=== PATIENT | female | born 1950 | race Caucasian/White ===

== ENCOUNTER 2017-06-12 20:38 | Emergency (ER) | payer MEDICARE, OTHER ==
[~2017-06-12] VITALS: Ht 162.6 cm; Wt 74.5 kg
[2017-06-12] MEDS ORDERED: VITAD1000 PO (20:52)
[2017-06-12] MEDS ORDERED: DONE5TAB5 PO (20:52)
[2017-06-12] MEDS ORDERED: ASPI81 PO (20:52)
[2017-06-12] MEDS ORDERED: LEVO75 PO (20:52)
[2017-06-12] MEDS ORDERED: MELA3TAB66 PO (20:52)
[2017-06-12] MEDS ORDERED: METO25 PO (20:52)
[2017-06-12] MEDS ORDERED: LISI-661 PO (20:52)
[2017-06-12] MEDS ORDERED: MOM30 PO (20:52)
[2017-06-12] MEDS ORDERED: FLUO-191 PO (20:52)
[2017-06-12] MEDS ORDERED: ATOR10TA84 PO (20:52)
[2017-06-12] MEDS ORDERED: BISA5TAB12 PO (20:52)
[2017-06-12] MEDS ORDERED: ACET-784 PO (20:52)
[2017-06-12] MEDS ORDERED: MIRT15 PO (20:52)
[2017-06-12] MEDS ORDERED: OLAN10TA3 PO (20:52)
[2017-06-12 22:32] LABS: BASOPHILS # (AUTO) 0.07 K/uL (0.00-0.20); BASOPHILS % (AUTO) 0.7 % (0.0-2.0); EOSINOPHILS # (AUTO) 0.25 K/uL (0.00-0.70); EOSINOPHILS % (AUTO) 2.36 % (1.0-6.0); HEMOGLOBIN 12.2 g/dL (12.0-16.0); LYMPHOCYTES # (AUTO) 2.4 K/uL (1.0-4.8); MEAN CORPUSCULAR HEMOGLOBIN 30.9 pg (26.0-34.0); MEAN CORPUSCULAR VOLUME 94 fL (80-100); MONOCYTES # (AUTO) 0.7 K/uL (0.1-1.0); MONOCYTES % (AUTO) 6.4 % (2.0-9.0); NEUTROPHILS # (AUTO) 7.1 K/uL (1.8-7.7); NEUTROPHILS % (AUTO) 67.6 % (40.0-70.0); PLATELET COUNT (AUTO) 289 K/uL (150-450); RED BLOOD CELL COUNT(AUTO) 3.95 MIL/uL (4.00-5.20)
[2017-06-12 22:46] LABS: ANION GAP 9 mmol/L (8-16); CALCIUM, TOTAL 9.6 mg/dL (8.8-10.5); CARBON DIOXIDE 29 mmol/L (22-29); CHLORIDE 102 mmol/L (98-107); CREATININE 1.21 mg/dL (0.60-1.30); GLOMERULAR FILTR. RATE CALC 44 mL/min (>60); GLUCOSE,RANDOM 106 mg/dL (70-110); POTASSIUM 4.6 mmol/L (3.5-5.1); SODIUM SERUM 140 mmol/L (136-145); UREA NITROGEN, BLOOD 24 mg/dL (7-18)
[2017-06-12 22:52] LABS: ALANINE AMINOTRANSFERASE 16 U/L (12-78); ALBUMIN 3.3 g/dL (3.4-5.0); ALKALINE PHOSPHATASE 62 U/L (46-116); ASPARTATE AMINOTRANSFERASE 22 U/L (15-37); BILIRUBIN,TOTAL 0.2 mg/dL (0.1-1.0); TOTAL PROTEIN, SERUM 7.3 g/dL (6.4-8.2)
[2017-06-12 23:37] LABS: AMPHET/METH SCREEN,URINE NEGATIVE (NEGATIVE); BARBITURATE SCREEN, URINE NEGATIVE (NEGATIVE); BENZODIAZEPINES SCREEN,URINE NEGATIVE (NEGATIVE); CANNABINOID SCREEN,URINE NEGATIVE (NEGATIVE); COCAINE SCREEN,URINE NEGATIVE (NEGATIVE); METHADONE SCREEN, URINE NEGATIVE (NEGATIVE); OPIATE SCREEN,URINE NEGATIVE (NEGATIVE)
[2017-06-12 23:39] LABS: PHENCYCLIDINE SCREEN,URINE NEGATIVE (NEGATIVE)
[2017-06-13 01:36] VITALS: BP 176/89
== END 2017-06-13 02:24 | disposition home or self-care (01) ==
LOC: EMS 20:40
DX: F25.9 Schizoaffective disorder, unspecified (principal); I10 Essential (primary) hypertension
CPT/HCPCS: 36415; 80053; 80307; 85025; 99284; G0480

== ENCOUNTER 2017-12-31 11:43 | Emergency (ER) | payer MEDICARE, OTHER ==
[~2017-12-31] VITALS: Ht 152.4 cm; Wt 90.0 kg
[~2017-12-31 11:43] MED LIST: ACET-784 PO; ASPI81 PO; ATOR10TA84 PO; BISA5TAB12 PO; DONE5TAB5 PO; FLUO-191 PO; LEVO75 PO; LISI-661 PO; MELA3TAB66 PO; METO25 PO; MIRT15 PO; MOM30 PO; OLAN10TA3 PO; VITAD1000 PO
[2017-12-31 14:20] LABS: APPEARANCE,URINE CLEAR (CLEAR); BILIRUBIN,URINE NEGATIVE (NEGATIVE); GLUCOSE, URINE (UA) NEGATIVE (NEGATIVE); KETONES,URINE NEGATIVE (NEGATIVE); LEUKOCYTE ESTERASE ,URINE NEGATIVE (NEGATIVE); NITRATE,URINE NEGATIVE (NEGATIVE); OCCULT BLOOD,URINE SMALL (NEGATIVE); PROTEIN,URINE TRACE (NEGATIVE); UROBILINOGEN,URINE 0.2 mg/dL (<=1.0)
[2017-12-31 14:26] LABS: BASOPHILS % (AUTO) 1.1 % (0.0-2.0); EOSINOPHILS % (AUTO) 1.2 % (1.0-6.0); HEMATOCRIT 30.9 % (36-46); HEMOGLOBIN 10.5 g/dL (12.0-16.0); LYMPHOCYTES # (AUTO) 1.4 K/uL (1.0-4.8); LYMPHOCYTES % (AUTO) 17.9 % (22.0-44.0); MEAN CORPUSCULAR HEMOGLOBIN 31.7 pg (26.0-34.0); MEAN CORPUSCULAR HGB CONC 34.1 G/dL (31.0-37.0); MEAN CORPUSCULAR VOLUME 93 fL (80-100); MONOCYTES # (AUTO) 0.6 K/uL (0.1-1.0); MONOCYTES % (AUTO) 7.5 % (2.0-9.0); NEUTROPHILS # (AUTO) 5.7 K/uL (1.8-7.7); NEUTROPHILS % (AUTO) 72.3 % (40.0-70.0); PLATELET COUNT (AUTO) 330 K/uL (150-450); RED BLOOD CELL COUNT(AUTO) 3.32 MIL/uL (4.00-5.20); RED CELL DISTRIBUTION WIDTH 15.4 % (11.5-14.5)
[2017-12-31 14:33] LABS: BACTERIA,URINE Rare /HPF (None Seen); WBC,URINE 0-2 /HPF (0-5)
[2017-12-31 14:34] LABS: CALCIUM, TOTAL 8.7 mg/dL (8.8-10.5); CREATININE 1.07 mg/dL (0.60-1.30); POTASSIUM 3.6 mmol/L (3.5-5.1)
[2017-12-31 14:35] LABS: SQUAMOUS EPITHELIAL CELL,UR Rare /LPF (None Seen)
[2017-12-31 14:43] LABS: ALBUMIN 3.4 g/dL (3.4-5.0); BILIRUBIN,TOTAL 0.4 mg/dL (0.1-1.0); TOTAL PROTEIN, SERUM 7.5 g/dL (6.4-8.2)
[2017-12-31 14:56] VITALS: BP 163/98
== END 2017-12-31 15:48 | disposition home or self-care (01) ==
LOC: EMS 11:45
DX: R46.89 Other symptoms and signs involving appearance and behavior (principal); D64.9 Anemia, unspecified; F20.9 Schizophrenia, unspecified; I10 Essential (primary) hypertension
CPT/HCPCS: 99284

== ENCOUNTER 2018-01-07 10:18 | Emergency (ER) | payer MEDICARE, OTHER ==
[~2018-01-07] VITALS: Ht 165.1 cm; Wt 120.0 kg
[2018-01-07 10:48] LABS: BASOPHILS % (AUTO) 1.2 % (0.0-2.0); EOSINOPHILS % (AUTO) 1.5 % (1.0-6.0); HEMATOCRIT 30.8 % (36-46); HEMOGLOBIN 10.5 g/dL (12.0-16.0); LYMPHOCYTES # (AUTO) 1.7 K/uL (1.0-4.8); MEAN CORPUSCULAR HEMOGLOBIN 31.8 pg (26.0-34.0); MEAN CORPUSCULAR HGB CONC 34.1 G/dL (31.0-37.0); MEAN CORPUSCULAR VOLUME 93 fL (80-100); MONOCYTES # (AUTO) 0.6 K/uL (0.1-1.0); MONOCYTES % (AUTO) 8.6 % (2.0-9.0); NEUTROPHILS # (AUTO) 4.7 K/uL (1.8-7.7); NEUTROPHILS % (AUTO) 65.7 % (40.0-70.0); PLATELET COUNT (AUTO) 307 K/uL (150-450); RED BLOOD CELL COUNT(AUTO) 3.31 MIL/uL (4.00-5.20); RED CELL DISTRIBUTION WIDTH 14.6 % (11.5-14.5)
[2018-01-07 10:59] LABS: ANION GAP 6 mmol/L (8-16); CALCIUM, TOTAL 8.9 mg/dL (8.8-10.5); CARBON DIOXIDE 31 mmol/L (22-29); CHLORIDE 102 mmol/L (98-107); CREATININE 1.01 mg/dL (0.60-1.30); GLOMERULAR FILTR. RATE CALC 55 mL/min (>60); GLUCOSE,RANDOM 101 mg/dL (70-110); POTASSIUM 3.8 mmol/L (3.5-5.1); SODIUM SERUM 139 mmol/L (136-145); UREA NITROGEN, BLOOD 24 mg/dL (7-18)
[2018-01-07 11:13] LABS: ALANINE AMINOTRANSFERASE 23 U/L (12-78); ALBUMIN 3.6 g/dL (3.4-5.0); ALKALINE PHOSPHATASE 86 U/L (46-116); ASPARTATE AMINOTRANSFERASE 25 U/L (15-37); BILIRUBIN,TOTAL 0.4 mg/dL (0.1-1.0); THYROID STIMULATING HORMONE 39.53 uIU/mL (0.36-3.74)
[2018-01-07] MEDS ORDERED: HALOPERIDOL 5 MG TABLET PO PRN (14:00)
[2018-01-07] MEDS ORDERED: ZOLPIDEM TARTRATE 10 MG TABLET PO PRN (14:00)
[2018-01-07] MEDS ORDERED: LORazepam 2 MG TABLET PO PRN (14:00)
[2018-01-07 15:42] LABS: APPEARANCE,URINE CLEAR (CLEAR); BILIRUBIN,URINE NEGATIVE (NEGATIVE); GLUCOSE, URINE (UA) NEGATIVE (NEGATIVE); KETONES,URINE NEGATIVE (NEGATIVE); LEUKOCYTE ESTERASE ,URINE NEGATIVE (NEGATIVE); NITRATE,URINE NEGATIVE (NEGATIVE); OCCULT BLOOD,URINE MODERATE (NEGATIVE); PH,URINE 7.5 (5.0-8.0); PROTEIN,URINE NEGATIVE (NEGATIVE); UROBILINOGEN,URINE 0.2 mg/dL (<=1.0)
[2018-01-07 15:48] LABS: AMPHET/METH SCREEN,URINE NEGATIVE (NEGATIVE); BARBITURATE SCREEN, URINE NEGATIVE (NEGATIVE); BENZODIAZEPINES SCREEN,URINE NEGATIVE (NEGATIVE); CANNABINOID SCREEN,URINE NEGATIVE (NEGATIVE); COCAINE SCREEN,URINE NEGATIVE (NEGATIVE); METHADONE SCREEN, URINE NEGATIVE (NEGATIVE); OPIATE SCREEN,URINE NEGATIVE (NEGATIVE); PHENCYCLIDINE SCREEN,URINE NEGATIVE (NEGATIVE)
[2018-01-07 16:00] LABS: BACTERIA,URINE None Seen /HPF (None Seen); SQUAMOUS EPITHELIAL CELL,UR Rare /LPF (None Seen); WBC,URINE 0-2 /HPF (0-5)
[2018-01-07] MEDS ORDERED: OLANZapine 10 MG TABLET PO SCH (21:00)
[2018-01-07] MEDS ORDERED: MIRTAZAPINE 15 MG TABLET PO SCH (21:00)
[2018-01-08 08:42] LABS: CHOL/HDL RATIO 2.7 (3.9-5.7); FREE T4 (FREE THYROXINE) 0.54 ng/dL (0.76-1.46); THYROID STIMULATING HORMONE 35.6 uIU/mL (0.36-3.74)
[2018-01-08] MEDS ORDERED: FLUoxetine HCL 20 MG CAPSULE PO SCH (09:00)
[2018-01-08 10:53] VITALS: BP 163/92
== END 2018-01-08 11:01 | disposition home or self-care (01) ==
LOC: EMS 10:19
DX: F20.9 Schizophrenia, unspecified (principal); I10 Essential (primary) hypertension
CPT/HCPCS: 36415; 80053; 80061; 80307; 81001; 84439; 84443; 85025; 99285; G0480

== ENCOUNTER 2018-09-10 12:21 | Emergency (ER) | payer MEDICARE, OTHER ==
[~2018-09-10] VITALS: Ht 165.1 cm; Wt 85.0 kg
[~2018-09-10 12:21] MED LIST changes: -LEVO75 PO; +LEVO88TA4 PO; -MELA3TAB66 PO; +MELA5TAB3 PO
[2018-09-10] MEDS ORDERED: MELA5TAB3 PO (13:11)
[2018-09-10] MEDS ORDERED: FURO20 PO (13:11)
[2018-09-10] MEDS ORDERED: DIVA-78 PO (13:11)
[2018-09-10 14:24] LABS: BASOPHILS % (AUTO) 1.1 % (0.0-2.0); HEMATOCRIT 33.1 % (36-46); LYMPHOCYTES # (AUTO) 1.6 K/uL (1.0-4.8); LYMPHOCYTES % (AUTO) 25.2 % (22.0-44.0); MEAN CORPUSCULAR HEMOGLOBIN 31.5 pg (26.0-34.0); MEAN CORPUSCULAR HGB CONC 33.3 G/dL (31.0-37.0); MEAN CORPUSCULAR VOLUME 95 fL (80-100); MONOCYTES # (AUTO) 0.5 K/uL (0.1-1.0); MONOCYTES % (AUTO) 8.2 % (2.0-9.0); NEUTROPHILS # (AUTO) 4.1 K/uL (1.8-7.7); NEUTROPHILS % (AUTO) 63.5 % (40.0-70.0); PLATELET COUNT (AUTO) 295 K/uL (150-450); RED CELL DISTRIBUTION WIDTH 15.9 % (11.5-14.5)
[2018-09-10 14:35] LABS: ANION GAP 8 mmol/L (8-16); CALCIUM, TOTAL 9.4 mg/dL (8.8-10.5); CARBON DIOXIDE 32 mmol/L (22-29); CHLORIDE 100 mmol/L (98-107); CREATININE 1.38 mg/dL (0.60-1.30); GLOMERULAR FILTR. RATE CALC 38 mL/min (>60); GLUCOSE,RANDOM 90 mg/dL (70-110); POTASSIUM 3.6 mmol/L (3.5-5.1); SODIUM SERUM 140 mmol/L (136-145); UREA NITROGEN, BLOOD 28 mg/dL (7-18)
[2018-09-10 14:41] LABS: ALANINE AMINOTRANSFERASE 21 U/L (12-78); ALKALINE PHOSPHATASE 65 U/L (46-116); ASPARTATE AMINOTRANSFERASE 34 U/L (15-37); BILIRUBIN,TOTAL 0.3 mg/dL (0.1-1.0); TOTAL PROTEIN, SERUM 8.4 g/dL (6.4-8.2)
[2018-09-10 15:33] VITALS: BP 140/77
[2018-09-10 15:41] LABS: APPEARANCE,URINE CLEAR (CLEAR); BILIRUBIN,URINE NEGATIVE (NEGATIVE); GLUCOSE, URINE (UA) NEGATIVE (NEGATIVE); KETONES,URINE NEGATIVE (NEGATIVE); LEUKOCYTE ESTERASE ,URINE TRACE (NEGATIVE); NITRATE,URINE NEGATIVE (NEGATIVE); OCCULT BLOOD,URINE NEGATIVE (NEGATIVE); PROTEIN,URINE TRACE (NEGATIVE); UROBILINOGEN,URINE 0.2 mg/dL (<=1.0)
[2018-09-10 15:44] LABS: AMPHET/METH SCREEN,URINE NEGATIVE (NEGATIVE); BARBITURATE SCREEN, URINE NEGATIVE (NEGATIVE); BENZODIAZEPINES SCREEN,URINE NEGATIVE (NEGATIVE); CANNABINOID SCREEN,URINE NEGATIVE (NEGATIVE); COCAINE SCREEN,URINE NEGATIVE (NEGATIVE); METHADONE SCREEN, URINE NEGATIVE (NEGATIVE); OPIATE SCREEN,URINE NEGATIVE (NEGATIVE)
[2018-09-10 15:46] LABS: PHENCYCLIDINE SCREEN,URINE NEGATIVE (NEGATIVE)
[2018-09-10 15:49] LABS: BACTERIA,URINE None Seen /HPF (None Seen); RBC,URINE None Seen /HPF (0-2); WBC,URINE 0-2 /HPF (0-5)
== END 2018-09-10 16:50 | disposition home or self-care (01) ==
LOC: EMS 12:23
DX: F69 Unspecified disorder of adult personality and behavior (principal); F20.9 Schizophrenia, unspecified; N18.9 Chronic kidney disease, unspecified; I10 Essential (primary) hypertension; E03.9 Hypothyroidism, unspecified; Z79.899 Other long term (current) drug therapy; Z79.82 Long term (current) use of aspirin
CPT/HCPCS: 36415; 71045; 80053; 80307; 81001; 84484; 85025; 93005; 99284; G0480

== ENCOUNTER 2019-03-28 19:17 | Emergency (ER) | payer MEDICARE, OTHER ==
[~2019-03-28] VITALS: Ht 165.1 cm; Wt 72.7 kg
[~2019-03-28 19:17] MED LIST changes: +BISA-151 PO; -BISA5TAB12 PO; +CHOL100018 PO; +DIVA-78 PO; +FURO20 PO; -VITAD1000 PO
[2019-03-28 20:26] LABS: APPEARANCE,URINE CLEAR (CLEAR); BILIRUBIN,URINE NEGATIVE (NEGATIVE); GLUCOSE, URINE (UA) NEGATIVE (NEGATIVE); KETONES,URINE NEGATIVE (NEGATIVE); LEUKOCYTE ESTERASE ,URINE NEGATIVE (NEGATIVE); NITRATE,URINE NEGATIVE (NEGATIVE); OCCULT BLOOD,URINE MODERATE (NEGATIVE); PROTEIN,URINE SEE CONFIRM (NEGATIVE); UROBILINOGEN,URINE 0.2 mg/dL (<=1.0)
[2019-03-28 20:29] LABS: AMPHET/METH SCREEN,URINE NEGATIVE (NEGATIVE); BARBITURATE SCREEN, URINE NEGATIVE (NEGATIVE); BENZODIAZEPINES SCREEN,URINE NEGATIVE (NEGATIVE); CANNABINOID SCREEN,URINE NEGATIVE (NEGATIVE); COCAINE SCREEN,URINE NEGATIVE (NEGATIVE); METHADONE SCREEN, URINE NEGATIVE (NEGATIVE); OPIATE SCREEN,URINE NEGATIVE (NEGATIVE)
[2019-03-28 20:30] LABS: PHENCYCLIDINE SCREEN,URINE NEGATIVE (NEGATIVE)
[2019-03-28 20:45] LABS: SULFOSALICYLIC ACID,URINE 3+ (Negative)
[2019-03-28 20:46] LABS: WBC,URINE 0-2 /HPF (0-5)
[2019-03-28 20:47] LABS: BACTERIA,URINE Rare /HPF (None Seen); SQUAMOUS EPITHELIAL CELL,UR Few /LPF (None Seen)
[2019-03-28 21:16] VITALS: BP 142/84
== END 2019-03-28 23:01 | disposition home or self-care (01) ==
LOC: EMS 19:18
DX: R45.1 Restlessness and agitation (principal); F20.9 Schizophrenia, unspecified; I10 Essential (primary) hypertension; E03.9 Hypothyroidism, unspecified; E11.9 Type 2 diabetes mellitus without complications; Z79.899 Other long term (current) drug therapy

== ENCOUNTER 2019-04-11 16:56 | Inpatient (IN) | payer MEDICARE, OTHER ==
[~2019-04-11] VITALS: Ht 160 cm; Wt 87.7 kg
[2019-04-11 17:45] LABS: ANION GAP 9 mmol/L (8-16); CALCIUM, TOTAL 8.6 mg/dL (8.8-10.5); CARBON DIOXIDE 30 mmol/L (22-29); CHLORIDE 100 mmol/L (98-107); CREATININE 1.37 mg/dL (0.60-1.30); GLOMERULAR FILTR. RATE CALC 38 mL/min (>60); GLUCOSE,RANDOM 110 mg/dL (70-110); POTASSIUM 3.5 mmol/L (3.5-5.1); SODIUM SERUM 139 mmol/L (136-145); UREA NITROGEN, BLOOD 31 mg/dL (7-18)
[2019-04-11 17:51] LABS: ALANINE AMINOTRANSFERASE 32 U/L (12-78); ALBUMIN 3.5 g/dL (3.4-5.0); ALKALINE PHOSPHATASE 59 U/L (46-116); ASPARTATE AMINOTRANSFERASE 61 U/L (15-37); BILIRUBIN,TOTAL 0.3 mg/dL (0.1-1.0); TOTAL PROTEIN, SERUM 7.4 g/dL (6.4-8.2)
[2019-04-11 18:20] LABS: BASOPHILS % (AUTO) 0.8 % (0.0-2.0); EOSINOPHILS % (AUTO) 1.6 % (1.0-6.0); HEMATOCRIT 31.5 % (36-46); HEMOGLOBIN 10.4 g/dL (12.0-16.0); LYMPHOCYTES # (AUTO) 1.5 K/uL (1.0-4.8); LYMPHOCYTES % (AUTO) 23.6 % (22.0-44.0); MEAN CORPUSCULAR HEMOGLOBIN 30.9 pg (26.0-34.0); MEAN CORPUSCULAR HGB CONC 33.1 G/dL (31.0-37.0); MEAN CORPUSCULAR VOLUME 93 fL (80-100); MONOCYTES # (AUTO) 0.5 K/uL (0.1-1.0); MONOCYTES % (AUTO) 7.4 % (2.0-9.0); NEUTROPHILS # (AUTO) 4.1 K/uL (1.8-7.7); NEUTROPHILS % (AUTO) 66.6 % (40.0-70.0); PLATELET COUNT (AUTO) 242 K/uL (150-450); RED BLOOD CELL COUNT(AUTO) 3.38 MIL/uL (4.00-5.20); RED CELL DISTRIBUTION WIDTH 15.1 % (11.5-14.5)
[2019-04-11] MEDS ORDERED: AZITHROMYCIN 500 MG/NS 250 ML IV ONE (19:00)
[2019-04-11] MEDS ORDERED: VANCOMYCIN HCL 1 GM/D5% WATER 200 ML IV ONE (19:00)
[2019-04-11] MEDS ORDERED: PIPERACILLIN/TAZO 3.375 GM/D5W 50 ML IV ONE (19:00)
[2019-04-11] MEDS ORDERED: 0.9% SODIUM CHLORIDE 10 ML SYRINGE IVP PRN (20:15)
[2019-04-11] MEDS ORDERED: ACETAMINOPHEN 325 MG TABLET PO PRN (20:15)
[2019-04-11] MEDS: OXYGEN THERAPY IH SCH (20:15)
[2019-04-11] MEDS ORDERED: MIDAZOLAM HCL 2 MG/2 ML VIAL IM ONE ×2 (21:30→21:45)
[2019-04-11] MEDS ORDERED: IPRATROPIUM BROMIDE 0.5 MG/2.5 ML NEB SOLUTION NEB PRN (23:45)
[2019-04-11] MEDS: METOPROLOL TARTRATE 25 MG TABLET PO SCH (23:45)
[2019-04-11] MEDS ORDERED: BISACODYL 5 MG EC TABLET PO PRN (23:45)
[2019-04-11] MEDS: DONEPEZIL HCL 5 MG TABLET PO SCH (23:45)
[2019-04-11] MEDS ORDERED: HYDROCODONE/ACETAMINOPHEN 5-325 MG TABLET PO PRN (23:45)
[2019-04-11] MEDS: MELATONIN 5 MG TABLET PO SCH (23:45)
[2019-04-11] MEDS ORDERED: MAGNESIUM HYDROXIDE SUSPENSION 30 ML UDCUP PO PRN ×2 (23:45)
[2019-04-11] MEDS ORDERED: ALBUTEROL SULFATE 2.5 MG/0.5 ML NEB SOLUTION NEB PRN (23:45)
[2019-04-11] MEDS: MIRTAZAPINE 15 MG TABLET PO SCH (23:45)
[2019-04-11] MEDS ORDERED: BISACODYL 10 MG RECTAL RECTAL SUPPOSITORY PR PRN (23:45)
[2019-04-11] MEDS ORDERED: MORPHINE SULFATE 2 MG/ML SYRINGE IVP PRN (23:45)
[2019-04-11] MEDS ORDERED: ONDANSETRON HCL 4 MG/2 ML VIAL IVP PRN (23:45)
[2019-04-11] MEDS: DIVALPROEX SODIUM 500 MG DR TABLET PO SCH (23:45)
[2019-04-11] MEDS ORDERED: FUROSEMIDE 40 MG/4 ML VIAL IVP ONE (23:45)
[2019-04-11] MEDS ORDERED: ZOLPIDEM TARTRATE 5 MG TABLET PO PRN (23:45)
[2019-04-12 00:15] VITALS: BP 129/71
[2019-04-12] MEDS ORDERED: MOM30 PO (00:24)
[2019-04-12] MEDS ORDERED: MEMA5 PO (00:24)
[2019-04-12] MEDS ORDERED: KDUR10 PO (00:24)
[2019-04-12] MEDS ORDERED: DOCU-275 PO (00:24)
[2019-04-12] MEDS ORDERED: QUET25TA PO (00:24)
[2019-04-12] MEDS ORDERED: AMLO10TA7 PO (00:24)
[2019-04-12] MEDS ORDERED: BISA10SU11 PR (00:39)
[2019-04-12] MEDS: HEPARIN SODIUM,PORCINE 5,000 UNITS/ML VIAL SQ SCH ×4 (02:15→23:13)
[2019-04-12] MEDS ORDERED: HALOPERIDOL LACTATE 5 MG/ML VIAL IM PRN (04:00)
[2019-04-12 05:33] VITALS: BP 136/64
[2019-04-12] MEDS: LEVOTHYROXINE SODIUM 88 MCG TABLET PO SCH (06:30)
[2019-04-12] MEDS: OXYGEN THERAPY IH SCH (08:00)
[2019-04-12 08:16] VITALS: BP 130/81
[2019-04-12] MEDS: DOCUSATE SODIUM 100 MG CAPSULE PO SCH ×3 (09:00→21:00)
[2019-04-12] MEDS: FUROSEMIDE 40 MG/4 ML VIAL IVP SCH (09:00)
[2019-04-12] MEDS: LISINOPRIL 10 MG TABLET PO SCH (09:00)
[2019-04-12] MEDS: ASPIRIN 81 MG CHEWABLE TABLET PO SCH (09:00)
[2019-04-12] MEDS: FLUoxetine HCL 20 MG CAPSULE PO SCH (09:00)
[2019-04-12] MEDS: CHOLECALCIFEROL (VIT D3) 1,000 UNITS TABLET PO SCH (09:00)
[2019-04-12] MEDS: METOPROLOL TARTRATE 25 MG TABLET PO SCH ×3 (09:00→21:00)
[2019-04-12 10:42] LABS: BASOPHILS % (AUTO) 0.6 % (0.0-2.0); EOSINOPHILS % (AUTO) 0.4 % (1.0-6.0); HEMATOCRIT 33.8 % (36-46); HEMOGLOBIN 11.4 g/dL (12.0-16.0); LYMPHOCYTES # (AUTO) 1.1 K/uL (1.0-4.8); LYMPHOCYTES % (AUTO) 17.6 % (22.0-44.0); MEAN CORPUSCULAR HEMOGLOBIN 31.4 pg (26.0-34.0); MEAN CORPUSCULAR HGB CONC 33.8 G/dL (31.0-37.0); MEAN CORPUSCULAR VOLUME 93 fL (80-100); MONOCYTES # (AUTO) 0.4 K/uL (0.1-1.0); NEUTROPHILS # (AUTO) 4.8 K/uL (1.8-7.7); NEUTROPHILS % (AUTO) 75.4 % (40.0-70.0); PLATELET COUNT (AUTO) 253 K/uL (150-450); RED BLOOD CELL COUNT(AUTO) 3.65 MIL/uL (4.00-5.20)
[2019-04-12 11:04] LABS: ALBUMIN 3.8 g/dL (3.4-5.0); BILIRUBIN,TOTAL 0.4 mg/dL (0.1-1.0); CALCIUM, TOTAL 8.6 mg/dL (8.8-10.5); CREATININE 1.14 mg/dL (0.60-1.30); TOTAL PROTEIN, SERUM 7.9 g/dL (6.4-8.2)
[2019-04-12 11:21] VITALS: BP 165/87
[2019-04-12 16:42] VITALS: BP 151/79
[2019-04-12] MEDS ORDERED: POTASSIUM CHLORIDE 10% 40 MEQ/30 ML LIQUID UDCUP PO ONE (18:15)
[2019-04-12] MEDS: DONEPEZIL HCL 5 MG TABLET PO SCH ×2 (20:12→21:00)
[2019-04-12] MEDS: ATORVASTATIN CALCIUM 10 MG TABLET PO SCH ×2 (20:12→21:00)
[2019-04-12] MEDS: MELATONIN 5 MG TABLET PO SCH ×2 (20:12→21:00)
[2019-04-12] MEDS: OLANZapine 10 MG TABLET PO SCH ×2 (20:12→21:00)
[2019-04-12] MEDS: MIRTAZAPINE 15 MG TABLET PO SCH ×2 (20:12→21:00)
[2019-04-12] MEDS: DIVALPROEX SODIUM 500 MG DR TABLET PO SCH ×2 (20:14→21:00)
[2019-04-12 20:22] VITALS: BP 148/92
[2019-04-13] VITALS (7 sets, daily range): BP systolic 105–155; BP diastolic 70–88
[2019-04-13] MEDS: LEVOTHYROXINE SODIUM 88 MCG TABLET PO SCH (06:04)
[2019-04-13 06:50] LABS: BASOPHILS % (AUTO) 0.6 % (0.0-2.0); EOSINOPHILS % (AUTO) 1.3 % (1.0-6.0); HEMATOCRIT 34.2 % (36-46); HEMOGLOBIN 11.6 g/dL (12.0-16.0); LYMPHOCYTES # (AUTO) 1.9 K/uL (1.0-4.8); LYMPHOCYTES % (AUTO) 26.2 % (22.0-44.0); MEAN CORPUSCULAR HEMOGLOBIN 31.3 pg (26.0-34.0); MEAN CORPUSCULAR HGB CONC 33.8 G/dL (31.0-37.0); MEAN CORPUSCULAR VOLUME 93 fL (80-100); MONOCYTES # (AUTO) 0.5 K/uL (0.1-1.0); MONOCYTES % (AUTO) 6.7 % (2.0-9.0); NEUTROPHILS # (AUTO) 4.8 K/uL (1.8-7.7); NEUTROPHILS % (AUTO) 65.2 % (40.0-70.0); PLATELET COUNT (AUTO) 255 K/uL (150-450); RED CELL DISTRIBUTION WIDTH 15.1 % (11.5-14.5)
[2019-04-13 07:09] LABS: ALBUMIN 3.9 g/dL (3.4-5.0); BILIRUBIN,TOTAL 0.5 mg/dL (0.1-1.0); CALCIUM, TOTAL 8.9 mg/dL (8.8-10.5); CREATININE 1.28 mg/dL (0.60-1.30); POTASSIUM 3.4 mmol/L (3.5-5.1); TOTAL PROTEIN, SERUM 8.2 g/dL (6.4-8.2)
[2019-04-13] MEDS: CHOLECALCIFEROL (VIT D3) 1,000 UNITS TABLET PO SCH (09:00)
[2019-04-13] MEDS: METOPROLOL TARTRATE 25 MG TABLET PO SCH ×2 (09:00→21:00)
[2019-04-13] MEDS: DOCUSATE SODIUM 100 MG CAPSULE PO SCH ×2 (09:00→21:00)
[2019-04-13] MEDS: LISINOPRIL 10 MG TABLET PO SCH (09:00)
[2019-04-13] MEDS: FLUoxetine HCL 20 MG CAPSULE PO SCH (09:00)
[2019-04-13] MEDS: ASPIRIN 81 MG CHEWABLE TABLET PO SCH (09:09)
[2019-04-13] MEDS: FUROSEMIDE 40 MG/4 ML VIAL IVP SCH (09:10)
[2019-04-13] MEDS: HEPARIN SODIUM,PORCINE 5,000 UNITS/ML VIAL SQ SCH ×3 (09:14→23:41)
[2019-04-13] MEDS: DIVALPROEX SODIUM 500 MG DR TABLET PO SCH (20:47)
[2019-04-13] MEDS: DONEPEZIL HCL 5 MG TABLET PO SCH (20:47)
[2019-04-13] MEDS: MELATONIN 5 MG TABLET PO SCH (20:48)
[2019-04-13] MEDS: OLANZapine 10 MG TABLET PO SCH (20:48)
[2019-04-13] MEDS: MIRTAZAPINE 15 MG TABLET PO SCH (20:48)
[2019-04-13] MEDS: ATORVASTATIN CALCIUM 10 MG TABLET PO SCH (21:00)
[2019-04-14] MEDS: METOPROLOL TARTRATE 25 MG TABLET PO SCH ×3 (01:18→21:00)
[2019-04-14] MEDS: ACETAMINOPHEN 325 MG TABLET PO PRN ×2 (01:18→09:18)
[2019-04-14 05:00] VITALS: BP 133/78
[2019-04-14] MEDS: LEVOTHYROXINE SODIUM 88 MCG TABLET PO SCH (06:09)
[2019-04-14 07:00] LABS: BASOPHILS % (AUTO) 0.8 % (0.0-2.0); EOSINOPHILS % (AUTO) 1.5 % (1.0-6.0); HEMATOCRIT 35.5 % (36-46); HEMOGLOBIN 11.8 g/dL (12.0-16.0); LYMPHOCYTES % (AUTO) 27.4 % (22.0-44.0); MEAN CORPUSCULAR HEMOGLOBIN 30.9 pg (26.0-34.0); MEAN CORPUSCULAR HGB CONC 33.2 G/dL (31.0-37.0); MEAN CORPUSCULAR VOLUME 93 fL (80-100); MONOCYTES # (AUTO) 0.5 K/uL (0.1-1.0); MONOCYTES % (AUTO) 6.7 % (2.0-9.0); NEUTROPHILS # (AUTO) 4.7 K/uL (1.8-7.7); NEUTROPHILS % (AUTO) 63.6 % (40.0-70.0); PLATELET COUNT (AUTO) 253 K/uL (150-450); RED BLOOD CELL COUNT(AUTO) 3.81 MIL/uL (4.00-5.20); RED CELL DISTRIBUTION WIDTH 14.9 % (11.5-14.5)
[2019-04-14 07:27] VITALS: BP 137/92
[2019-04-14 07:29] LABS: ALBUMIN 3.8 g/dL (3.4-5.0); BILIRUBIN,TOTAL 0.4 mg/dL (0.1-1.0); CALCIUM, TOTAL 8.8 mg/dL (8.8-10.5); CREATININE 1.25 mg/dL (0.60-1.30); POTASSIUM 3.9 mmol/L (3.5-5.1); TOTAL PROTEIN, SERUM 8.1 g/dL (6.4-8.2)
[2019-04-14] MEDS: HEPARIN SODIUM,PORCINE 5,000 UNITS/ML VIAL SQ SCH ×3 (08:00→23:40)
[2019-04-14] MEDS: ASPIRIN 81 MG CHEWABLE TABLET PO SCH ×2 (09:00→09:18)
[2019-04-14] MEDS: FUROSEMIDE 40 MG/4 ML VIAL IVP SCH (09:00)
[2019-04-14] MEDS: DOCUSATE SODIUM 100 MG CAPSULE PO SCH ×2 (09:00→21:00)
[2019-04-14] MEDS: CHOLECALCIFEROL (VIT D3) 1,000 UNITS TABLET PO SCH (09:00)
[2019-04-14] MEDS: LISINOPRIL 10 MG TABLET PO SCH (09:00)
[2019-04-14] MEDS: FLUoxetine HCL 20 MG CAPSULE PO SCH (09:00)
[2019-04-14 13:47] VITALS: BP 125/69
[2019-04-14 20:07] VITALS: BP 139/70
[2019-04-14] MEDS: MELATONIN 5 MG TABLET PO SCH (21:00)
[2019-04-14] MEDS: MIRTAZAPINE 15 MG TABLET PO SCH (21:00)
[2019-04-14] MEDS: ATORVASTATIN CALCIUM 10 MG TABLET PO SCH (21:00)
[2019-04-14] MEDS: DONEPEZIL HCL 5 MG TABLET PO SCH (21:00)
[2019-04-14] MEDS: DIVALPROEX SODIUM 500 MG DR TABLET PO SCH (21:00)
[2019-04-14] MEDS: OLANZapine 10 MG TABLET PO SCH (21:00)
[2019-04-15 00:02] VITALS: BP 132/73
[2019-04-15 05:34] VITALS: BP 122/80
[2019-04-15 06:06] LABS: BASOPHILS % (AUTO) 0.7 % (0.0-2.0); EOSINOPHILS % (AUTO) 1.5 % (1.0-6.0); HEMATOCRIT 35.2 % (36-46); HEMOGLOBIN 11.9 g/dL (12.0-16.0); LYMPHOCYTES # (AUTO) 2.2 K/uL (1.0-4.8); LYMPHOCYTES % (AUTO) 32.7 % (22.0-44.0); MEAN CORPUSCULAR HEMOGLOBIN 31.5 pg (26.0-34.0); MEAN CORPUSCULAR HGB CONC 33.9 G/dL (31.0-37.0); MEAN CORPUSCULAR VOLUME 93 fL (80-100); MONOCYTES # (AUTO) 0.4 K/uL (0.1-1.0); MONOCYTES % (AUTO) 6.4 % (2.0-9.0); NEUTROPHILS # (AUTO) 3.9 K/uL (1.8-7.7); NEUTROPHILS % (AUTO) 58.7 % (40.0-70.0); PLATELET COUNT (AUTO) 251 K/uL (150-450); RED BLOOD CELL COUNT(AUTO) 3.79 MIL/uL (4.00-5.20); RED CELL DISTRIBUTION WIDTH 14.9 % (11.5-14.5)
[2019-04-15] MEDS: LEVOTHYROXINE SODIUM 88 MCG TABLET PO SCH (06:30)
[2019-04-15 07:19] LABS: ALBUMIN 3.9 g/dL (3.4-5.0); BILIRUBIN,TOTAL 0.3 mg/dL (0.1-1.0); CALCIUM, TOTAL 8.9 mg/dL (8.8-10.5); CREATININE 1.22 mg/dL (0.60-1.30); POTASSIUM 3.8 mmol/L (3.5-5.1); TOTAL PROTEIN, SERUM 8.3 g/dL (6.4-8.2)
[2019-04-15 07:41] VITALS: BP 140/72
[2019-04-15] MEDS: HEPARIN SODIUM,PORCINE 5,000 UNITS/ML VIAL SQ SCH ×2 (08:00→15:13)
[2019-04-15] MEDS: FLUoxetine HCL 20 MG CAPSULE PO SCH (09:00)
[2019-04-15] MEDS: METOPROLOL TARTRATE 25 MG TABLET PO SCH ×2 (09:00→21:00)
[2019-04-15] MEDS: LISINOPRIL 10 MG TABLET PO SCH (09:00)
[2019-04-15] MEDS: CHOLECALCIFEROL (VIT D3) 1,000 UNITS TABLET PO SCH (09:00)
[2019-04-15] MEDS: ASPIRIN 81 MG CHEWABLE TABLET PO SCH (09:00)
[2019-04-15] MEDS: FUROSEMIDE 40 MG/4 ML VIAL IVP SCH (09:00)
[2019-04-15] MEDS: DOCUSATE SODIUM 100 MG CAPSULE PO SCH ×2 (09:00→21:00)
[2019-04-15 15:39] VITALS: BP 131/85
[2019-04-15] MEDS: ACETAMINOPHEN 325 MG TABLET PO PRN ×2 (16:03→22:40)
[2019-04-15 20:16] VITALS: BP 114/70
[2019-04-15] MEDS: MELATONIN 5 MG TABLET PO SCH (21:00)
[2019-04-15] MEDS: DIVALPROEX SODIUM 500 MG DR TABLET PO SCH (21:00)
[2019-04-15] MEDS: DONEPEZIL HCL 5 MG TABLET PO SCH (21:00)
[2019-04-15] MEDS: ATORVASTATIN CALCIUM 10 MG TABLET PO SCH (21:00)
[2019-04-15] MEDS: OLANZapine 10 MG TABLET PO SCH (21:00)
[2019-04-15] MEDS: MIRTAZAPINE 15 MG TABLET PO SCH (21:00)
[2019-04-16 04:11] VITALS: BP 136/79
[2019-04-16] MEDS: LEVOTHYROXINE SODIUM 88 MCG TABLET PO SCH (06:30)
[2019-04-16 07:36] VITALS: BP 128/76
[2019-04-16] MEDS: HEPARIN SODIUM,PORCINE 5,000 UNITS/ML VIAL SQ SCH ×3 (08:00→16:00)
[2019-04-16] MEDS: ASPIRIN 81 MG CHEWABLE TABLET PO SCH (09:00)
[2019-04-16] MEDS: FLUoxetine HCL 20 MG CAPSULE PO SCH (09:00)
[2019-04-16] MEDS: CHOLECALCIFEROL (VIT D3) 1,000 UNITS TABLET PO SCH (09:00)
[2019-04-16] MEDS: LISINOPRIL 10 MG TABLET PO SCH (09:00)
[2019-04-16] MEDS: DOCUSATE SODIUM 100 MG CAPSULE PO SCH (09:00)
[2019-04-16] MEDS: FUROSEMIDE 40 MG/4 ML VIAL IVP SCH (09:00)
[2019-04-16] MEDS: METOPROLOL TARTRATE 25 MG TABLET PO SCH (09:34)
[2019-04-16] MEDS: ACETAMINOPHEN 325 MG TABLET PO PRN (09:45)
[2019-04-16 11:09] VITALS: BP 134/60
[2019-04-16 14:16] LABS: BASOPHILS % (AUTO) 0.9 % (0.0-2.0); EOSINOPHILS % (AUTO) 1.5 % (1.0-6.0); HEMATOCRIT 34.2 % (36-46); HEMOGLOBIN 11.2 g/dL (12.0-16.0); LYMPHOCYTES # (AUTO) 1.5 K/uL (1.0-4.8); LYMPHOCYTES % (AUTO) 25.2 % (22.0-44.0); MEAN CORPUSCULAR HEMOGLOBIN 30.8 pg (26.0-34.0); MEAN CORPUSCULAR HGB CONC 32.8 G/dL (31.0-37.0); MEAN CORPUSCULAR VOLUME 94 fL (80-100); MONOCYTES # (AUTO) 0.4 K/uL (0.1-1.0); MONOCYTES % (AUTO) 6.9 % (2.0-9.0); NEUTROPHILS % (AUTO) 65.5 % (40.0-70.0); PLATELET COUNT (AUTO) 242 K/uL (150-450); RED BLOOD CELL COUNT(AUTO) 3.65 MIL/uL (4.00-5.20); RED CELL DISTRIBUTION WIDTH 14.9 % (11.5-14.5)
[2019-04-16 14:33] LABS: ALBUMIN 3.6 g/dL (3.4-5.0); BILIRUBIN,TOTAL 0.3 mg/dL (0.1-1.0); CALCIUM, TOTAL 9.3 mg/dL (8.8-10.5); CREATININE 1.36 mg/dL (0.60-1.30); POTASSIUM 3.9 mmol/L (3.5-5.1); TOTAL PROTEIN, SERUM 7.8 g/dL (6.4-8.2)
[2019-04-17] MEDS ORDERED: FUROSEMIDE 40 MG/4 ML VIAL IVP SCH (09:00)
== END 2019-04-16 20:40 | DRG 71 ==
LOC: EMS 16:57 → 5N 20:30
PROVIDERS: ADMIT Hospitalist; ATTEND Hospitalist
DX: G93.40 Encephalopathy, unspecified (principal); F03.91 Unspecified dementia, unspecified severity, with behavioral disturbance; I50.20 Unspecified systolic (congestive) heart failure; R45.851 Suicidal ideations; R09.02 Hypoxemia; G47.00 Insomnia, unspecified; F03.90 Unspecified dementia, unspecified severity, without behavioral disturbance, psychotic disturbance, mood disturbance, and anxiety; E11.9 Type 2 diabetes mellitus without complications; E89.0 Postprocedural hypothyroidism; F25.1 Schizoaffective disorder, depressive type; I11.0 Hypertensive heart disease with heart failure; I25.10 Atherosclerotic heart disease of native coronary artery without angina pectoris; E78.5 Hyperlipidemia, unspecified; Z91.19 Patient's noncompliance with other medical treatment and regimen
CPT/HCPCS: 93005; 97161; 97166; 97535; G0480; J1630; J1644; J1940; J2250; J3370

== ENCOUNTER 2019-05-12 10:01 | Inpatient (IN) | payer MEDICARE, OTHER ==
[~2019-05-12] VITALS: Ht 162.6 cm; Wt 92.4 kg
[~2019-05-12 10:01] MED LIST changes: -BISA-151 PO; +BISA10SU11 PR; -DIVA-78 PO; +DOCU-275 PO; -DONE5TAB5 PO; -FLUO-191 PO; +KDUR10 PO; +MEMA5 PO; -MIRT15 PO; -OLAN10TA3 PO; +QUET25TA PO
[2019-05-12 10:41] LABS: ANION GAP 4 mmol/L (8-16); CALCIUM, TOTAL 8.7 mg/dL (8.8-10.5); CARBON DIOXIDE 33 mmol/L (22-29); CHLORIDE 102 mmol/L (98-107); CREATININE 1.42 mg/dL (0.60-1.30); GLOMERULAR FILTR. RATE CALC 37 mL/min (>60); GLUCOSE,RANDOM 84 mg/dL (70-110); POTASSIUM 4.2 mmol/L (3.5-5.1); SODIUM SERUM 139 mmol/L (136-145); UREA NITROGEN, BLOOD 23 mg/dL (7-18)
[2019-05-12 10:46] LABS: ALANINE AMINOTRANSFERASE 40 U/L (12-78); ALKALINE PHOSPHATASE 61 U/L (46-116); ASPARTATE AMINOTRANSFERASE 68 U/L (15-37); BILIRUBIN,TOTAL 0.4 mg/dL (0.1-1.0); TOTAL PROTEIN, SERUM 8.6 g/dL (6.4-8.2)
[2019-05-12 11:16] LABS: BASOPHILS % (AUTO) 0.8 % (0.0-2.0); HEMATOCRIT 33.4 % (36-46); HEMOGLOBIN 11.2 g/dL (12.0-16.0); LYMPHOCYTES # (AUTO) 2.2 K/uL (1.0-4.8); LYMPHOCYTES % (AUTO) 39.9 % (22.0-44.0); MEAN CORPUSCULAR HEMOGLOBIN 31.3 pg (26.0-34.0); MEAN CORPUSCULAR HGB CONC 33.5 G/dL (31.0-37.0); MEAN CORPUSCULAR VOLUME 93 fL (80-100); MONOCYTES # (AUTO) 0.4 K/uL (0.1-1.0); MONOCYTES % (AUTO) 6.7 % (2.0-9.0); NEUTROPHILS # (AUTO) 2.8 K/uL (1.8-7.7); NEUTROPHILS % (AUTO) 50.6 % (40.0-70.0); PLATELET COUNT (AUTO) 223 K/uL (150-450); RED BLOOD CELL COUNT(AUTO) 3.58 MIL/uL (4.00-5.20); RED CELL DISTRIBUTION WIDTH 15.8 % (11.5-14.5)
[2019-05-12] MEDS ORDERED: LORazepam 2 MG/ML VIAL IVP ONE (13:30)
[2019-05-12] MEDS ORDERED: CloNIDine HCL 0.2 MG TABLET PO ONE (16:15)
[2019-05-12] MEDS ORDERED: DiphenhydrAMINE HCL 50 MG/ML VIAL IM ONE (16:30)
[2019-05-12] MEDS ORDERED: LORazepam 2 MG/ML VIAL IM ONE (16:30)
[2019-05-12] MEDS ORDERED: HALOPERIDOL LACTATE 5 MG/ML VIAL IM ONE (16:30)
[2019-05-12] MEDS ORDERED: FUROSEMIDE 40 MG/4 ML VIAL IVP ONE (20:45)
[2019-05-12 21:46] LABS: ABG A-A DIFF O2 122.8 mmHg (10-20.0); ABG BASE EXCESS 6.2 mmol/L (-2.0-3.0); ABG CARBOXYHEMOGLOBIN 0.4 % (0.0-1.5); ABG HCO3 27.1 mmol/L (22.0-26.0); ABG METHEMOGLOBIN 0.1 % (0.0-1.5); ABG OXYGEN CONTENT 15.7 mL/dL (15.0-23.0); ABG OXYGEN SATURATION 91.8 % (95.0-98.0); ABG OXYHEMOGLOBIN 91.3 % (94.0-100.0); ABG TOTAL HEMOGLOBIN 12.2 G/dL (12.0-18.0); PO2, ARTERIAL BG 58.4 mmHg (75.0-83.0); SOURCE, BLOOD GAS ARTERIAL; TEMPERATURE, FAHRENHEIT, BG 91.8 FAHREN (96.0-98.6)
[2019-05-12 21:47] LABS: ABG PCO2 94 mmHg (35-45); ABG PH 7.174 (7.35-7.450); O2 DEVICE,BLOOD GAS BIPAP (ROOM AIR); SITE, BLOOD GAS RT RADIAL
[2019-05-12 21:48] LABS: SPONTANEOUS VT, BG 307 ml
[2019-05-12] MEDS ORDERED: RAPID SEQUENCE KIT [RSI] 1 EACH KIT ONE (21:54)
[2019-05-12] MEDS ORDERED: SUCCINYLCHOLINE CHLORIDE 20 MG/ML 10 ML VIAL ONE (21:54)
[2019-05-12] MEDS ORDERED: ETOMIDATE 2 MG/ML 10 ML VIAL IVP ONE (22:15)
[2019-05-12] MEDS ORDERED: PROPOFOL 1000 MG/ISO-OSM 100 ML IV ONE (22:19)
[2019-05-12] MEDS ORDERED: 0.9% SODIUM CHLORIDE 10 ML SYRINGE IVP PRN (22:30)
[2019-05-12] MEDS ORDERED: ACETAMINOPHEN 325 MG TABLET PO PRN (22:30)
[2019-05-12] MEDS ORDERED: PROPOFOL 1000 MG/ISO-OSM 100 ML IV PRN (22:35)
[2019-05-12] MEDS ORDERED: VECURONIUM BROMIDE 10 MG/VIAL IVP ONE ×2 (22:45→23:15)
[2019-05-12 23:05] LABS: ABG A-A DIFF O2 618.7 mmHg (10-20.0); ABG BASE EXCESS 4.1 mmol/L (-2.0-3.0); ABG CARBOXYHEMOGLOBIN 0.2 % (0.0-1.5); ABG HCO3 27.9 mmol/L (22.0-26.0); ABG METHEMOGLOBIN 0.1 % (0.0-1.5); ABG OXYGEN CONTENT 16.2 mL/dL (15.0-23.0); ABG OXYGEN SATURATION 97.3 % (95.0-98.0); ABG PCO2 34 mmHg (35-45); ABG PH 7.516 (7.35-7.450); ABG TOTAL HEMOGLOBIN 11.8 G/dL (12.0-18.0); SOURCE, BLOOD GAS ARTERIAL; TEMPERATURE, FAHRENHEIT, BG 91.1 FAHREN (96.0-98.6)
[2019-05-12 23:24] LABS: O2 DEVICE,BLOOD GAS VENTILATOR (ROOM AIR); PEEP,BG 5 cm H2O; SITE, BLOOD GAS RT RADIAL; SPONTANEOUS VT, BG 438 ml; VT, ABG 450 ml
[2019-05-13] VITALS (11 sets, daily range): BP systolic 94–191; BP diastolic 27–103
[2019-05-13] MEDS ORDERED: ALBUTEROL SULFATE 2.5 MG/0.5 ML NEB SOLUTION NEB PRN (00:45)
[2019-05-13] MEDS ORDERED: ZOLPIDEM TARTRATE 5 MG TABLET PO PRN (00:45)
[2019-05-13] MEDS ORDERED: OxyCODONE HCL/ACETAMINOPHEN 5-325 MG TABLET PO PRN (00:45)
[2019-05-13] MEDS ORDERED: MAGNESIUM HYDROXIDE SUSPENSION 30 ML UDCUP PO PRN (00:45)
[2019-05-13] MEDS ORDERED: ONDANSETRON HCL 4 MG/2 ML VIAL IVP PRN (00:45)
[2019-05-13] MEDS ORDERED: IPRATROPIUM BROMIDE 0.5 MG/2.5 ML NEB SOLUTION NEB PRN (00:45)
[2019-05-13] MEDS ORDERED: BISACODYL 10 MG RECTAL RECTAL SUPPOSITORY PR PRN ×2 (00:45)
[2019-05-13] MEDS ORDERED: SODIUM CHLORIDE 0.9% 250 ML IV ONE (02:13)
[2019-05-13] MEDS: IPRATROPIUM BROMIDE 0.5 MG/2.5 ML NEB SOLUTION NEB SCH ×6 (02:26→22:15)
[2019-05-13] MEDS: ALBUTEROL SULFATE 2.5 MG/0.5 ML NEB SOLUTION NEB SCH ×6 (02:26→22:15)
[2019-05-13] MEDS: PIPERACILLIN/TAZO 3.375 GM/D5W 50 ML IV SCH ×4 (02:29→20:01)
[2019-05-13] MEDS ORDERED: INFLUENZA VIRUS VACCINE QVS 2019-20 (3YR+)/PF 60 MCG/0.5 ML SYRINGE IM ONE (02:45)
[2019-05-13 05:08] LABS: BASOPHILS % (AUTO) 0.8 % (0.0-2.0); EOSINOPHILS % (AUTO) 0.2 % (1.0-6.0); HEMATOCRIT 30.9 % (36-46); HEMOGLOBIN 10.7 g/dL (12.0-16.0); LYMPHOCYTES % (AUTO) 14.5 % (22.0-44.0); MEAN CORPUSCULAR HEMOGLOBIN 32.1 pg (26.0-34.0); MEAN CORPUSCULAR HGB CONC 34.8 G/dL (31.0-37.0); MEAN CORPUSCULAR VOLUME 92 fL (80-100); MONOCYTES # (AUTO) 0.6 K/uL (0.1-1.0); MONOCYTES % (AUTO) 8.6 % (2.0-9.0); NEUTROPHILS # (AUTO) 5.4 K/uL (1.8-7.7); NEUTROPHILS % (AUTO) 75.9 % (40.0-70.0); PLATELET COUNT (AUTO) 220 K/uL (150-450); RED BLOOD CELL COUNT(AUTO) 3.35 MIL/uL (4.00-5.20); RED CELL DISTRIBUTION WIDTH 15.8 % (11.5-14.5)
[2019-05-13] MEDS: MethylPREDNISolone SOD SUCC 125 MG/2 ML VIAL IVP SCH ×4 (05:40→23:53)
[2019-05-13] MEDS: LEVOTHYROXINE SODIUM 88 MCG TABLET PO SCH (05:40)
[2019-05-13 06:39] LABS: CALCIUM, TOTAL 8.6 mg/dL (8.8-10.5); CREATININE 1.47 mg/dL (0.60-1.30); POTASSIUM 3.4 mmol/L (3.5-5.1)
[2019-05-13 06:43] LABS: ALBUMIN 3.7 g/dL (3.4-5.0); BILIRUBIN,TOTAL 0.6 mg/dL (0.1-1.0); TOTAL PROTEIN, SERUM 7.8 g/dL (6.4-8.2)
[2019-05-13] MEDS: FUROSEMIDE 40 MG/4 ML VIAL IVP SCH ×2 (08:05→21:02)
[2019-05-13] MEDS: PANTOPRAZOLE SODIUM 40 MG DR TABLET PO SCH (08:05)
[2019-05-13] MEDS: HEPARIN SODIUM,PORCINE 5,000 UNITS/ML VIAL SQ SCH ×3 (08:05→23:53)
[2019-05-13] MEDS: ATORVASTATIN CALCIUM 10 MG TABLET PO SCH (08:06)
[2019-05-13] MEDS: MEMANTINE HCL 5 MG TABLET PO SCH (08:06)
[2019-05-13] MEDS ORDERED: DOCUSATE SODIUM 100 MG CAPSULE PO SCH (09:00)
[2019-05-13] MEDS ORDERED: METOPROLOL TARTRATE 25 MG TABLET PO SCH (09:00)
[2019-05-13] MEDS: DOCUSATE SODIUM 100 MG CAPSULE PO SCH ×2 (09:00→21:02)
[2019-05-13] MEDS ORDERED: LISINOPRIL 10 MG TABLET PO SCH (09:00)
[2019-05-13] MEDS: ASPIRIN 81 MG CHEWABLE TABLET PO SCH (12:55)
[2019-05-13] MEDS: CHOLECALCIFEROL (VIT D3) 1,000 UNITS TABLET PO SCH (12:55)
[2019-05-13] MEDS ORDERED: ETOMIDATE 2 MG/ML 10 ML VIAL IV ONE (17:00)
[2019-05-13] MEDS ORDERED: VECURONIUM BROMIDE 10 MG/VIAL IV ONE (17:00)
[2019-05-13] MEDS: MORPHINE SULFATE 2 MG/ML SYRINGE IVP PRN (20:00)
[2019-05-13] MEDS ORDERED: 0.9% SODIUM CHLORIDE 15 ML NEB SOLUTION NEB ONE (20:12)
[2019-05-13] MEDS: METOPROLOL TARTRATE 25 MG TABLET PO SCH (20:59)
[2019-05-14] VITALS (10 sets, daily range): BP systolic 81–128; BP diastolic 40–73
[2019-05-14] MEDS ORDERED: 0.9% SODIUM CHLORIDE 15 ML NEB SOLUTION NEB ONE (01:42)
[2019-05-14] MEDS: PIPERACILLIN/TAZO 3.375 GM/D5W 50 ML IV SCH ×4 (01:49→20:11)
[2019-05-14] MEDS: IPRATROPIUM BROMIDE 0.5 MG/2.5 ML NEB SOLUTION NEB SCH ×6 (02:44→22:28)
[2019-05-14] MEDS: ALBUTEROL SULFATE 2.5 MG/0.5 ML NEB SOLUTION NEB SCH ×6 (02:45→22:28)
[2019-05-14] MEDS: MORPHINE SULFATE 2 MG/ML SYRINGE IVP PRN ×2 (03:59→19:25)
[2019-05-14] MEDS: MethylPREDNISolone SOD SUCC 125 MG/2 ML VIAL IVP SCH ×4 (05:43→23:53)
[2019-05-14] MEDS: LEVOTHYROXINE SODIUM 88 MCG TABLET PO SCH (05:43)
[2019-05-14 08:43] LABS: BASOPHILS % (AUTO) 0.1 % (0.0-2.0); EOSINOPHILS % (AUTO) 0 % (1.0-6.0); HEMATOCRIT 32.4 % (36-46); HEMOGLOBIN 10.9 g/dL (12.0-16.0); LYMPHOCYTES # (AUTO) 0.8 K/uL (1.0-4.8); MEAN CORPUSCULAR HEMOGLOBIN 30.8 pg (26.0-34.0); MEAN CORPUSCULAR HGB CONC 33.8 G/dL (31.0-37.0); MEAN CORPUSCULAR VOLUME 91 fL (80-100); MONOCYTES # (AUTO) 0.3 K/uL (0.1-1.0); MONOCYTES % (AUTO) 3.4 % (2.0-9.0); NEUTROPHILS # (AUTO) 8.7 K/uL (1.8-7.7); PLATELET COUNT (AUTO) 228 K/uL (150-450); RED BLOOD CELL COUNT(AUTO) 3.55 MIL/uL (4.00-5.20); RED CELL DISTRIBUTION WIDTH 15.9 % (11.5-14.5)
[2019-05-14 08:44] LABS: NEUTROPHILS % (AUTO) 88.5 % (40.0-70.0)
[2019-05-14 08:47] LABS: CALCIUM, TOTAL 8.4 mg/dL (8.8-10.5); CREATININE 2.54 mg/dL (0.60-1.30)
[2019-05-14] MEDS: PANTOPRAZOLE SODIUM 40 MG DR TABLET PO SCH (08:58)
[2019-05-14] MEDS: MEMANTINE HCL 5 MG TABLET PO SCH (08:58)
[2019-05-14] MEDS: DOCUSATE SODIUM 100 MG CAPSULE PO SCH ×2 (08:58→20:18)
[2019-05-14] MEDS: ASPIRIN 81 MG CHEWABLE TABLET PO SCH (08:58)
[2019-05-14] MEDS: CHOLECALCIFEROL (VIT D3) 1,000 UNITS TABLET PO SCH (08:58)
[2019-05-14] MEDS: FUROSEMIDE 40 MG/4 ML VIAL IVP SCH ×2 (08:59→20:18)
[2019-05-14] MEDS: HEPARIN SODIUM,PORCINE 5,000 UNITS/ML VIAL SQ SCH ×3 (08:59→23:53)
[2019-05-14] MEDS: METOPROLOL TARTRATE 25 MG TABLET PO SCH ×2 (09:00→20:19)
[2019-05-14] MEDS ORDERED: LISINOPRIL 5 MG TABLET PO SCH (09:00)
[2019-05-14] MEDS: PROPOFOL 1000 MG/ISO-OSM 100 ML IV PRN (17:24)
[2019-05-14] MEDS: ATORVASTATIN CALCIUM 10 MG TABLET PO SCH (20:18)
[2019-05-14] MEDS: POTASSIUM CHL 10 MEQ/WATER 50 ML IV SCH ×2 (23:10→23:53)
[2019-05-15] VITALS (11 sets, daily range): BP systolic 99–137; BP diastolic 54–77
[2019-05-15] MEDS ORDERED: SODIUM CHLORIDE 0.9% 250 ML IV ONE ×2 (01:15→23:23)
[2019-05-15] MEDS: POTASSIUM CHL 10 MEQ/WATER 50 ML IV SCH ×2 (01:17→02:22)
[2019-05-15] MEDS: PROPOFOL 1000 MG/ISO-OSM 100 ML IV PRN ×4 (01:18→20:23)
[2019-05-15] MEDS: PIPERACILLIN/TAZO 3.375 GM/D5W 50 ML IV SCH (02:22)
[2019-05-15] MEDS: ALBUTEROL SULFATE 2.5 MG/0.5 ML NEB SOLUTION NEB SCH ×6 (03:09→22:53)
[2019-05-15] MEDS: IPRATROPIUM BROMIDE 0.5 MG/2.5 ML NEB SOLUTION NEB SCH ×6 (03:09→22:53)
[2019-05-15] MEDS: MethylPREDNISolone SOD SUCC 125 MG/2 ML VIAL IVP SCH ×4 (05:27→23:24)
[2019-05-15] MEDS: LEVOTHYROXINE SODIUM 88 MCG TABLET PO SCH (05:28)
[2019-05-15 05:33] LABS: BASOPHILS % (AUTO) 0.2 % (0.0-2.0); EOSINOPHILS % (AUTO) 0 % (1.0-6.0); HEMATOCRIT 31.5 % (36-46); HEMOGLOBIN 10.5 g/dL (12.0-16.0); LYMPHOCYTES # (AUTO) 0.6 K/uL (1.0-4.8); MEAN CORPUSCULAR HEMOGLOBIN 30.7 pg (26.0-34.0); MEAN CORPUSCULAR HGB CONC 33.3 G/dL (31.0-37.0); MEAN CORPUSCULAR VOLUME 92 fL (80-100); MONOCYTES # (AUTO) 0.4 K/uL (0.1-1.0); MONOCYTES % (AUTO) 4.1 % (2.0-9.0); NEUTROPHILS # (AUTO) 8.6 K/uL (1.8-7.7); PLATELET COUNT (AUTO) 205 K/uL (150-450); RED BLOOD CELL COUNT(AUTO) 3.41 MIL/uL (4.00-5.20); RED CELL DISTRIBUTION WIDTH 15.7 % (11.5-14.5)
[2019-05-15 05:35] LABS: CALCIUM, TOTAL 8.3 mg/dL (8.8-10.5); CREATININE 3.04 mg/dL (0.60-1.30); POTASSIUM 3.6 mmol/L (3.5-5.1)
[2019-05-15 05:37] LABS: NEUTROPHILS % (AUTO) 89.7 % (40.0-70.0)
[2019-05-15] MEDS: METOPROLOL TARTRATE 25 MG TABLET PO SCH ×2 (09:00→20:44)
[2019-05-15] MEDS ORDERED: SODIUM CHLORIDE 0.45% 1,000 ML IV ONE (09:45)
[2019-05-15] MEDS: ASPIRIN 81 MG CHEWABLE TABLET PO SCH (11:01)
[2019-05-15] MEDS: PANTOPRAZOLE SODIUM 40 MG DR TABLET PO SCH (11:01)
[2019-05-15] MEDS: FLUoxetine HCL 20 MG/5 ML SOLUTION ORAL.SYG NG SCH (12:11)
[2019-05-15] MEDS: CHOLECALCIFEROL (VIT D3) 1,000 UNITS TABLET PO SCH (12:21)
[2019-05-15] MEDS: DOCUSATE SODIUM 100 MG CAPSULE PO SCH ×2 (12:21→20:46)
[2019-05-15] MEDS: MetroNIDAZOLE 500 MG/NACL 100 ML IV SCH (16:06)
[2019-05-15] MEDS: CefTRIAXone 1 GM/DEXTROSE 50 ML IV SCH (16:07)
[2019-05-15] MEDS: ATORVASTATIN CALCIUM 10 MG TABLET PO SCH (20:46)
[2019-05-15] MEDS: OLANZapine 10 MG TABLET NG SCH (20:47)
[2019-05-15] MEDS: DIVALPROEX SODIUM 125 MG DR CAPSULE NG SCH (20:48)
[2019-05-15] MEDS ORDERED: OLANZapine 10 MG TABLET PO SCH (21:00)
[2019-05-15] MEDS: HEPARIN SODIUM,PORCINE 5,000 UNITS/ML VIAL SQ SCH (21:01)
[2019-05-15 23:47] LABS: APPEARANCE,URINE CLEAR (CLEAR); BILIRUBIN,URINE NEGATIVE (NEGATIVE); GLUCOSE, URINE (UA) NEGATIVE (NEGATIVE); KETONES,URINE NEGATIVE (NEGATIVE); LEUKOCYTE ESTERASE ,URINE NEGATIVE (NEGATIVE); NITRATE,URINE NEGATIVE (NEGATIVE); OCCULT BLOOD,URINE NEGATIVE (NEGATIVE); PROTEIN,URINE NEGATIVE (NEGATIVE); UROBILINOGEN,URINE 0.2 mg/dL (<=1.0)
[2019-05-15 23:48] LABS: CREATININE,URINE RANDOM 77.5 mg/dL (30.0-125.0); SODIUM,URINE RANDOM 10 mmol/l (20-110); UREA NITROGEN,URINE RANDOM 728 mg/dL (350-1000)
[2019-05-16] VITALS (14 sets, daily range): BP systolic 1–120; BP diastolic 45–75
[2019-05-16 00:23] LABS: BACTERIA,URINE None Seen /HPF (None Seen); RBC,URINE 0-2 /HPF (0-2); SQUAMOUS EPITHELIAL CELL,UR Rare /LPF (None Seen); WBC,URINE 0-2 /HPF (0-5)
[2019-05-16] MEDS: MetroNIDAZOLE 500 MG/NACL 100 ML IV SCH ×3 (00:35→16:21)
[2019-05-16] MEDS: IPRATROPIUM BROMIDE 0.5 MG/2.5 ML NEB SOLUTION NEB SCH ×6 (02:35→22:39)
[2019-05-16] MEDS: ALBUTEROL SULFATE 2.5 MG/0.5 ML NEB SOLUTION NEB SCH ×6 (02:35→22:39)
[2019-05-16] MEDS: PROPOFOL 1000 MG/ISO-OSM 100 ML IV PRN ×4 (03:10→20:03)
[2019-05-16] MEDS: MethylPREDNISolone SOD SUCC 125 MG/2 ML VIAL IVP SCH ×4 (05:16→23:08)
[2019-05-16 05:18] LABS: BASOPHILS % (AUTO) 0.1 % (0.0-2.0); EOSINOPHILS % (AUTO) 0 % (1.0-6.0); HEMATOCRIT 30.2 % (36-46); LYMPHOCYTES # (AUTO) 0.6 K/uL (1.0-4.8); LYMPHOCYTES % (AUTO) 6.9 % (22.0-44.0); MEAN CORPUSCULAR HEMOGLOBIN 30.7 pg (26.0-34.0); MEAN CORPUSCULAR HGB CONC 33.2 G/dL (31.0-37.0); MEAN CORPUSCULAR VOLUME 93 fL (80-100); MONOCYTES # (AUTO) 0.2 K/uL (0.1-1.0); MONOCYTES % (AUTO) 2.2 % (2.0-9.0); PLATELET COUNT (AUTO) 195 K/uL (150-450); RED BLOOD CELL COUNT(AUTO) 3.27 MIL/uL (4.00-5.20); RED CELL DISTRIBUTION WIDTH 16.1 % (11.5-14.5)
[2019-05-16 05:21] LABS: NEUTROPHILS % (AUTO) 90.8 % (40.0-70.0)
[2019-05-16] MEDS: LEVOTHYROXINE SODIUM 88 MCG TABLET PO SCH (05:44)
[2019-05-16 05:47] LABS: ALBUMIN 2.9 g/dL (3.4-5.0); BILIRUBIN,TOTAL 0.2 mg/dL (0.1-1.0); CALCIUM, TOTAL 7.6 mg/dL (8.8-10.5); CREATININE 2.75 mg/dL (0.60-1.30); MAGNESIUM 2.3 mg/dL (1.80-2.40); PHOSPHORUS 4.7 mg/dL (2.5-4.9); THYROID STIMULATING HORMONE 24.32 uIU/mL (0.36-3.74); TOTAL PROTEIN, SERUM 6.8 g/dL (6.4-8.2)
[2019-05-16 05:49] LABS: POTASSIUM 2.7 mmol/L (3.5-5.1)
[2019-05-16] MEDS: POTASSIUM CHL 10 MEQ/WATER 50 ML IV SCH ×2 (07:39→08:57)
[2019-05-16 09:49] LABS: ABG A-A DIFF O2 357.8 mmHg (10-20.0); ABG BASE EXCESS 0.3 mmol/L (-2.0-3.0); ABG CARBOXYHEMOGLOBIN 0.3 % (0.0-1.5); ABG HCO3 24.9 mmol/L (22.0-26.0); ABG METHEMOGLOBIN 0.3 % (0.0-1.5); ABG OXYGEN CONTENT 14.8 mL/dL (15.0-23.0); ABG OXYGEN SATURATION 94.3 % (95.0-98.0); ABG OXYHEMOGLOBIN 93.7 % (94.0-100.0); ABG PCO2 35 mmHg (35-45); ABG PH 7.462 (7.35-7.450); ABG TOTAL HEMOGLOBIN 11.2 G/dL (12.0-18.0); PO2, ARTERIAL BG 70.1 mmHg (75.0-83.0); SOURCE, BLOOD GAS ARTERIAL; TEMPERATURE, FAHRENHEIT, BG 96.4 FAHREN (96.0-98.6)
[2019-05-16 09:50] LABS: O2 DEVICE,BLOOD GAS VENTILATOR (ROOM AIR); PEEP,BG 5 cm H2O; SITE, BLOOD GAS LFT RADIAL; VT, ABG 450 ml
[2019-05-16] MEDS: DOCUSATE SODIUM 100 MG CAPSULE PO SCH ×2 (10:56→20:15)
[2019-05-16] MEDS: FLUoxetine HCL 20 MG/5 ML SOLUTION ORAL.SYG NG SCH (10:56)
[2019-05-16] MEDS: ASPIRIN 81 MG CHEWABLE TABLET PO SCH (10:56)
[2019-05-16] MEDS: CHOLECALCIFEROL (VIT D3) 1,000 UNITS TABLET PO SCH (10:56)
[2019-05-16] MEDS: HEPARIN SODIUM,PORCINE 5,000 UNITS/ML VIAL SQ SCH ×2 (10:56→20:15)
[2019-05-16] MEDS: PANTOPRAZOLE SODIUM 40 MG DR TABLET PO SCH (10:56)
[2019-05-16] MEDS: METOPROLOL TARTRATE 25 MG TABLET PO SCH ×2 (10:58→20:02)
[2019-05-16 15:12] LABS: ABG A-A DIFF O2 132.1 mmHg (10-20.0); ABG BASE EXCESS -4.2 mmol/L (-2.0-3.0); ABG CARBOXYHEMOGLOBIN 0.3 % (0.0-1.5); ABG HCO3 21.8 mmol/L (22.0-26.0); ABG METHEMOGLOBIN 0.3 % (0.0-1.5); ABG OXYGEN CONTENT 14.8 mL/dL (15.0-23.0); ABG OXYGEN SATURATION 95.8 % (95.0-98.0); ABG OXYHEMOGLOBIN 95.2 % (94.0-100.0); ABG PCO2 29 mmHg (35-45); ABG PH 7.454 (7.35-7.450); SOURCE, BLOOD GAS ARTERIAL; TEMPERATURE, FAHRENHEIT, BG 98.6 FAHREN (96.0-98.6)
[2019-05-16 15:13] LABS: CPAP, BG 5 cm H2O; O2 DEVICE,BLOOD GAS VENTILATOR (ROOM AIR); PRESSURE SUPPORT, BG 10 cm H2O; SITE, BLOOD GAS LFT RADIAL; VENT MODE, BG CPAP (ROOM AIR)
[2019-05-16] MEDS: CefTRIAXone 1 GM/DEXTROSE 50 ML IV SCH (16:21)
[2019-05-16] MEDS ORDERED: POTASSIUM CHLORIDE 10% 40 MEQ/30 ML LIQUID UDCUP NG ONE (17:15)
[2019-05-16] MEDS: DIVALPROEX SODIUM 125 MG DR CAPSULE NG SCH (20:15)
[2019-05-16] MEDS: OLANZapine 10 MG TABLET NG SCH (20:15)
[2019-05-16] MEDS: MAGNESIUM HYDROXIDE SUSPENSION 30 ML UDCUP PO PRN (20:15)
[2019-05-16] MEDS: ATORVASTATIN CALCIUM 10 MG TABLET PO SCH (20:15)
[2019-05-17] VITALS: BP 101/57
[2019-05-17] MEDS: MetroNIDAZOLE 500 MG/NACL 100 ML IV SCH ×3 (00:37→17:07)
[2019-05-17] MEDS: PROPOFOL 1000 MG/ISO-OSM 100 ML IV PRN ×3 (02:06→16:30)
[2019-05-17] MEDS: IPRATROPIUM BROMIDE 0.5 MG/2.5 ML NEB SOLUTION NEB SCH ×6 (02:24→22:41)
[2019-05-17] MEDS: ALBUTEROL SULFATE 2.5 MG/0.5 ML NEB SOLUTION NEB SCH ×6 (02:24→22:41)
[2019-05-17 04:00] VITALS: BP 97/58
[2019-05-17] MEDS: MethylPREDNISolone SOD SUCC 125 MG/2 ML VIAL IVP SCH ×3 (05:34→17:32)
[2019-05-17] MEDS: LEVOTHYROXINE SODIUM 100 MCG TABLET PO SCH (05:34)
[2019-05-17 05:54] LABS: CALCIUM, TOTAL 7.4 mg/dL (8.8-10.5); CREATININE 2.85 mg/dL (0.60-1.30); MAGNESIUM 2.5 mg/dL (1.80-2.40); PHOSPHORUS 4.3 mg/dL (2.5-4.9); POTASSIUM 3.1 mmol/L (3.5-5.1)
[2019-05-17 08:00] VITALS: BP 107/62
[2019-05-17] MEDS ORDERED: POTASSIUM CHLORIDE 10% 40 MEQ/30 ML LIQUID UDCUP NG ONE (08:30)
[2019-05-17] MEDS: METOPROLOL TARTRATE 25 MG TABLET PO SCH ×2 (09:00→20:54)
[2019-05-17] MEDS: HEPARIN SODIUM,PORCINE 5,000 UNITS/ML VIAL SQ SCH ×2 (09:35→20:54)
[2019-05-17] MEDS: DOCUSATE SODIUM 100 MG CAPSULE PO SCH ×2 (09:35→20:53)
[2019-05-17] MEDS: ASPIRIN 81 MG CHEWABLE TABLET PO SCH (09:35)
[2019-05-17] MEDS: CHOLECALCIFEROL (VIT D3) 1,000 UNITS TABLET PO SCH (09:36)
[2019-05-17] MEDS: FLUoxetine HCL 20 MG/5 ML SOLUTION ORAL.SYG NG SCH (09:36)
[2019-05-17] MEDS: PANTOPRAZOLE SODIUM 40 MG DR TABLET PO SCH (09:36)
[2019-05-17 12:00] VITALS: BP 101/56
[2019-05-17] MEDS: CefTRIAXone 1 GM/DEXTROSE 50 ML IV SCH (15:15)
[2019-05-17 16:00] VITALS: BP 104/62
[2019-05-17 20:00] VITALS: BP 96/73
[2019-05-17] MEDS: OLANZapine 10 MG TABLET NG SCH (20:53)
[2019-05-17] MEDS: ATORVASTATIN CALCIUM 10 MG TABLET PO SCH (20:53)
[2019-05-17] MEDS: DIVALPROEX SODIUM 125 MG DR CAPSULE NG SCH (20:53)
[2019-05-17] MEDS: MAGNESIUM HYDROXIDE SUSPENSION 30 ML UDCUP PO PRN (22:14)
[2019-05-18] VITALS: BP 110/70
[2019-05-18] MEDS: MethylPREDNISolone SOD SUCC 125 MG/2 ML VIAL IVP SCH ×4 (00:04→17:52)
[2019-05-18] MEDS: MetroNIDAZOLE 500 MG/NACL 100 ML IV SCH ×3 (01:17→17:16)
[2019-05-18] MEDS: ALBUTEROL SULFATE 2.5 MG/0.5 ML NEB SOLUTION NEB SCH ×6 (01:55→22:54)
[2019-05-18] MEDS: IPRATROPIUM BROMIDE 0.5 MG/2.5 ML NEB SOLUTION NEB SCH ×6 (01:55→22:54)
[2019-05-18] MEDS: PROPOFOL 1000 MG/ISO-OSM 100 ML IV PRN ×4 (02:28→23:12)
[2019-05-18 04:00] VITALS: BP 125/72
[2019-05-18 05:53] LABS: BASOPHILS % (AUTO) 0.1 % (0.0-2.0); EOSINOPHILS % (AUTO) 0 % (1.0-6.0); HEMATOCRIT 30.8 % (36-46); HEMOGLOBIN 10.7 g/dL (12.0-16.0); LYMPHOCYTES # (AUTO) 0.6 K/uL (1.0-4.8); MEAN CORPUSCULAR HEMOGLOBIN 31.8 pg (26.0-34.0); MEAN CORPUSCULAR HGB CONC 34.7 G/dL (31.0-37.0); MEAN CORPUSCULAR VOLUME 92 fL (80-100); MONOCYTES # (AUTO) 0.4 K/uL (0.1-1.0); MONOCYTES % (AUTO) 4.7 % (2.0-9.0); PLATELET COUNT (AUTO) 222 K/uL (150-450); RED BLOOD CELL COUNT(AUTO) 3.35 MIL/uL (4.00-5.20); RED CELL DISTRIBUTION WIDTH 16.3 % (11.5-14.5)
[2019-05-18 06:09] LABS: CALCIUM, TOTAL 7.9 mg/dL (8.8-10.5); CREATININE 2.37 mg/dL (0.60-1.30); PHOSPHORUS 4.2 mg/dL (2.5-4.9); POTASSIUM 4.1 mmol/L (3.5-5.1)
[2019-05-18] MEDS: LEVOTHYROXINE SODIUM 100 MCG TABLET PO SCH (06:10)
[2019-05-18 06:12] LABS: NEUTROPHILS % (AUTO) 88.2 % (40.0-70.0)
[2019-05-18 08:00] VITALS: BP 143/77
[2019-05-18] MEDS: PANTOPRAZOLE SODIUM 40 MG DR TABLET PO SCH ×2 (08:31→08:39)
[2019-05-18] MEDS: LACTULOSE 20 GM/30 ML SOLUTION UDCUP PO PRN (08:35)
[2019-05-18] MEDS: CHOLECALCIFEROL (VIT D3) 1,000 UNITS TABLET PO SCH (08:35)
[2019-05-18] MEDS: HEPARIN SODIUM,PORCINE 5,000 UNITS/ML VIAL SQ SCH ×2 (08:35→21:04)
[2019-05-18] MEDS: ASPIRIN 81 MG CHEWABLE TABLET PO SCH (08:35)
[2019-05-18] MEDS: DOCUSATE SODIUM 100 MG CAPSULE PO SCH ×2 (08:36→21:04)
[2019-05-18] MEDS: FLUoxetine HCL 20 MG/5 ML SOLUTION ORAL.SYG NG SCH (08:38)
[2019-05-18] MEDS: METOPROLOL TARTRATE 25 MG TABLET PO SCH ×2 (09:04→21:04)
[2019-05-18 09:57] LABS: ABG BASE EXCESS 1.9 mmol/L (-2.0-3.0); ABG CARBOXYHEMOGLOBIN 0.3 % (0.0-1.5); ABG METHEMOGLOBIN 0.3 % (0.0-1.5); ABG OXYGEN CONTENT 14.6 mL/dL (15.0-23.0); ABG OXYGEN SATURATION 93.5 % (95.0-98.0); ABG OXYHEMOGLOBIN 92.9 % (94.0-100.0); ABG PCO2 40 mmHg (35-45); ABG TOTAL HEMOGLOBIN 11.1 G/dL (12.0-18.0); PO2, ARTERIAL BG 69.6 mmHg (75.0-83.0); SOURCE, BLOOD GAS ARTERIAL; TEMPERATURE, FAHRENHEIT, BG 97.8 FAHREN (96.0-98.6)
[2019-05-18 09:58] LABS: SITE, BLOOD GAS LFT RADIAL
[2019-05-18 09:59] LABS: O2 DEVICE,BLOOD GAS VENTILATOR (ROOM AIR); PEEP,BG 5 cm H2O; VT, ABG 450 ml
[2019-05-18 12:00] VITALS: BP 128/73
[2019-05-18 16:00] VITALS: BP 121/74
[2019-05-18] MEDS: CefTRIAXone 1 GM/DEXTROSE 50 ML IV SCH (16:09)
[2019-05-18 20:00] VITALS: BP 147/74
[2019-05-18] MEDS: OLANZapine 10 MG TABLET NG SCH (21:04)
[2019-05-18] MEDS: ATORVASTATIN CALCIUM 10 MG TABLET PO SCH (21:04)
[2019-05-18] MEDS: DIVALPROEX SODIUM 125 MG DR CAPSULE NG SCH (21:05)
[2019-05-18] MEDS ORDERED: SODIUM CHLORIDE 0.9% 250 ML IV ONE (23:04)
[2019-05-19] VITALS: BP 125/73
[2019-05-19] MEDS: MethylPREDNISolone SOD SUCC 125 MG/2 ML VIAL IVP SCH ×4 (00:09→18:42)
[2019-05-19] MEDS: MetroNIDAZOLE 500 MG/NACL 100 ML IV SCH ×3 (01:00→16:12)
[2019-05-19] MEDS: IPRATROPIUM BROMIDE 0.5 MG/2.5 ML NEB SOLUTION NEB SCH ×6 (02:54→23:20)
[2019-05-19] MEDS: ALBUTEROL SULFATE 2.5 MG/0.5 ML NEB SOLUTION NEB SCH ×6 (02:54→23:20)
[2019-05-19 04:00] VITALS: BP 139/82
[2019-05-19 05:31] LABS: BASOPHILS % (AUTO) 0.1 % (0.0-2.0); EOSINOPHILS % (AUTO) 0 % (1.0-6.0); HEMOGLOBIN 9.9 g/dL (12.0-16.0); LYMPHOCYTES # (AUTO) 0.6 K/uL (1.0-4.8); LYMPHOCYTES % (AUTO) 5.6 % (22.0-44.0); MEAN CORPUSCULAR HEMOGLOBIN 30.6 pg (26.0-34.0); MEAN CORPUSCULAR HGB CONC 33.1 G/dL (31.0-37.0); MEAN CORPUSCULAR VOLUME 92 fL (80-100); MONOCYTES # (AUTO) 0.4 K/uL (0.1-1.0); MONOCYTES % (AUTO) 4.2 % (2.0-9.0); PLATELET COUNT (AUTO) 189 K/uL (150-450); RED BLOOD CELL COUNT(AUTO) 3.25 MIL/uL (4.00-5.20); RED CELL DISTRIBUTION WIDTH 16.1 % (11.5-14.5)
[2019-05-19 05:32] LABS: NEUTROPHILS % (AUTO) 90.1 % (40.0-70.0)
[2019-05-19 05:44] LABS: CALCIUM, TOTAL 7.9 mg/dL (8.8-10.5); CREATININE 1.71 mg/dL (0.60-1.30); PHOSPHORUS 3.3 mg/dL (2.5-4.9); POTASSIUM 3.3 mmol/L (3.5-5.1)
[2019-05-19] MEDS: LEVOTHYROXINE SODIUM 100 MCG TABLET PO SCH (06:16)
[2019-05-19 08:00] VITALS: BP 136/79
[2019-05-19] MEDS: DOCUSATE SODIUM 100 MG CAPSULE PO SCH ×2 (09:08→21:08)
[2019-05-19] MEDS: PANTOPRAZOLE SODIUM 40 MG DR TABLET PO SCH (09:08)
[2019-05-19] MEDS: CHOLECALCIFEROL (VIT D3) 1,000 UNITS TABLET PO SCH (09:08)
[2019-05-19] MEDS: HEPARIN SODIUM,PORCINE 5,000 UNITS/ML VIAL SQ SCH ×2 (09:09→21:08)
[2019-05-19] MEDS: METOPROLOL TARTRATE 25 MG TABLET PO SCH ×2 (09:09→21:08)
[2019-05-19] MEDS: ASPIRIN 81 MG CHEWABLE TABLET PO SCH (09:10)
[2019-05-19] MEDS: LACTULOSE 20 GM/30 ML SOLUTION UDCUP PO PRN (09:11)
[2019-05-19] MEDS: PROPOFOL 1000 MG/ISO-OSM 100 ML IV PRN ×2 (09:16→18:43)
[2019-05-19] MEDS: FLUoxetine HCL 20 MG/5 ML SOLUTION ORAL.SYG NG SCH (09:30)
[2019-05-19] MEDS: POTASSIUM CHL 10 MEQ/WATER 50 ML IV SCH ×2 (11:49→12:47)
[2019-05-19] MEDS ORDERED: SODIUM CHLORIDE 0.9% 250 ML IV ONE (11:53)
[2019-05-19 12:00] VITALS: BP 117/73
[2019-05-19] MEDS ORDERED: 0.9% SODIUM CHLORIDE 15 ML NEB SOLUTION NEB ONE (13:40)
[2019-05-19 16:00] VITALS: BP 153/94
[2019-05-19] MEDS: CefTRIAXone 1 GM/DEXTROSE 50 ML IV SCH (16:10)
[2019-05-19] MEDS: MAGNESIUM HYDROXIDE SUSPENSION 30 ML UDCUP PO PRN (16:11)
[2019-05-19 20:00] VITALS: BP 147/84
[2019-05-19] MEDS: OLANZapine 10 MG TABLET NG SCH (21:08)
[2019-05-19] MEDS: DIVALPROEX SODIUM 125 MG DR CAPSULE NG SCH (21:09)
[2019-05-19] MEDS: ATORVASTATIN CALCIUM 10 MG TABLET PO SCH (21:09)
[2019-05-20] VITALS (17 sets, daily range): BP systolic 127–178; BP diastolic 72–102
[2019-05-20] MEDS: MethylPREDNISolone SOD SUCC 125 MG/2 ML VIAL IVP SCH ×4 (00:06→19:30)
[2019-05-20] MEDS: MetroNIDAZOLE 500 MG/NACL 100 ML IV SCH ×3 (00:33→16:04)
[2019-05-20] MEDS: PROPOFOL 1000 MG/ISO-OSM 100 ML IV PRN ×4 (03:15→23:07)
[2019-05-20] MEDS: IPRATROPIUM BROMIDE 0.5 MG/2.5 ML NEB SOLUTION NEB SCH ×6 (03:23→23:28)
[2019-05-20] MEDS: ALBUTEROL SULFATE 2.5 MG/0.5 ML NEB SOLUTION NEB SCH ×6 (03:23→23:28)
[2019-05-20] MEDS ORDERED: SODIUM CHLORIDE 0.9% 250 ML IV ONE (04:59)
[2019-05-20 05:15] LABS: CALCIUM, TOTAL 8.2 mg/dL (8.8-10.5); CREATININE 1.58 mg/dL (0.60-1.30); PHOSPHORUS 3.5 mg/dL (2.5-4.9); POTASSIUM 4.7 mmol/L (3.5-5.1)
[2019-05-20] MEDS: LEVOTHYROXINE SODIUM 100 MCG TABLET PO SCH (06:04)
[2019-05-20 06:17] LABS: BASOPHILS % (AUTO) 0.1 % (0.0-2.0); EOSINOPHILS % (AUTO) 0.3 % (1.0-6.0); HEMATOCRIT 30.6 % (36-46); HEMOGLOBIN 10.4 g/dL (12.0-16.0); LYMPHOCYTES # (AUTO) 0.6 K/uL (1.0-4.8); LYMPHOCYTES % (AUTO) 5.5 % (22.0-44.0); MEAN CORPUSCULAR HEMOGLOBIN 31.4 pg (26.0-34.0); MEAN CORPUSCULAR HGB CONC 33.9 G/dL (31.0-37.0); MEAN CORPUSCULAR VOLUME 93 fL (80-100); MONOCYTES # (AUTO) 0.5 K/uL (0.1-1.0); MONOCYTES % (AUTO) 4.5 % (2.0-9.0); NEUTROPHILS # (AUTO) 9.8 K/uL (1.8-7.7); PLATELET COUNT (AUTO) 188 K/uL (150-450); RED BLOOD CELL COUNT(AUTO) 3.29 MIL/uL (4.00-5.20); RED CELL DISTRIBUTION WIDTH 16.2 % (11.5-14.5)
[2019-05-20 06:19] LABS: NEUTROPHILS % (AUTO) 89.6 % (40.0-70.0)
[2019-05-20] MEDS: ASPIRIN 81 MG CHEWABLE TABLET PO SCH (09:20)
[2019-05-20 09:21] LABS: ABG A-A DIFF O2 305.2 mmHg (10-20.0); ABG CARBOXYHEMOGLOBIN 0.4 % (0.0-1.5); ABG HCO3 25.3 mmol/L (22.0-26.0); ABG METHEMOGLOBIN 0.3 % (0.0-1.5); ABG OXYGEN CONTENT 17.5 mL/dL (15.0-23.0); ABG OXYGEN SATURATION 95.5 % (95.0-98.0); ABG OXYHEMOGLOBIN 94.8 % (94.0-100.0); ABG PCO2 39 mmHg (35-45); ABG PH 7.426 (7.35-7.450); ABG TOTAL HEMOGLOBIN 13.1 G/dL (12.0-18.0); PO2, ARTERIAL BG 79.3 mmHg (75.0-83.0); SOURCE, BLOOD GAS ARTERIAL; TEMPERATURE, FAHRENHEIT, BG 98.6 FAHREN (96.0-98.6)
[2019-05-20] MEDS: OLANZapine 10 MG TABLET NG SCH (09:21)
[2019-05-20] MEDS: CHOLECALCIFEROL (VIT D3) 1,000 UNITS TABLET PO SCH (09:21)
[2019-05-20] MEDS: LACTULOSE 20 GM/30 ML SOLUTION UDCUP PO PRN (09:21)
[2019-05-20] MEDS: METOPROLOL TARTRATE 25 MG TABLET PO SCH (09:22)
[2019-05-20] MEDS: FLUoxetine HCL 20 MG/5 ML SOLUTION ORAL.SYG NG SCH (09:22)
[2019-05-20] MEDS: DOCUSATE SODIUM 100 MG CAPSULE PO SCH ×2 (09:23→20:56)
[2019-05-20] MEDS: HEPARIN SODIUM,PORCINE 5,000 UNITS/ML VIAL SQ SCH ×2 (09:23→20:57)
[2019-05-20 09:24] LABS: O2 DEVICE,BLOOD GAS VENTILATOR (ROOM AIR); SITE, BLOOD GAS RT RADIAL
[2019-05-20 09:25] LABS: PEEP,BG 8 cm H2O; VT, ABG 450 ml
[2019-05-20] MEDS: PANTOPRAZOLE SODIUM 40 MG DR TABLET PO SCH (09:49)
[2019-05-20] MEDS: CefTRIAXone 1 GM/DEXTROSE 50 ML IV SCH (15:24)
[2019-05-20] MEDS: AmLODIPine BESYLATE 10 MG TABLET PO SCH (16:00)
[2019-05-20] MEDS: ATORVASTATIN CALCIUM 10 MG TABLET PO SCH (20:56)
[2019-05-20] MEDS: DIVALPROEX SODIUM 125 MG DR CAPSULE NG SCH (20:56)
[2019-05-20] MEDS: ACETAMINOPHEN 325 MG TABLET PO PRN (21:00)
[2019-05-21] VITALS (11 sets, daily range): BP systolic 127–165; BP diastolic 77–102
[2019-05-21] MEDS: MethylPREDNISolone SOD SUCC 125 MG/2 ML VIAL IVP SCH ×4 (00:20→16:56)
[2019-05-21] MEDS: MetroNIDAZOLE 500 MG/NACL 100 ML IV SCH ×3 (01:40→16:55)
[2019-05-21] MEDS ORDERED: SODIUM CHLORIDE 0.9% 100 ML ONE (01:42)
[2019-05-21] MEDS: ALBUTEROL SULFATE 2.5 MG/0.5 ML NEB SOLUTION NEB SCH ×6 (04:34→22:00)
[2019-05-21] MEDS: IPRATROPIUM BROMIDE 0.5 MG/2.5 ML NEB SOLUTION NEB SCH ×6 (04:34→22:00)
[2019-05-21] MEDS: PROPOFOL 1000 MG/ISO-OSM 100 ML IV PRN ×3 (06:06→18:00)
[2019-05-21] MEDS: LEVOTHYROXINE SODIUM 100 MCG TABLET PO SCH (06:21)
[2019-05-21] MEDS: AmLODIPine BESYLATE 10 MG TABLET PO SCH (08:39)
[2019-05-21] MEDS: HEPARIN SODIUM,PORCINE 5,000 UNITS/ML VIAL SQ SCH ×2 (08:39→20:51)
[2019-05-21] MEDS: CHOLECALCIFEROL (VIT D3) 1,000 UNITS TABLET PO SCH (08:40)
[2019-05-21] MEDS: FLUoxetine HCL 20 MG/5 ML SOLUTION ORAL.SYG NG SCH (08:40)
[2019-05-21] MEDS: ASPIRIN 81 MG CHEWABLE TABLET PO SCH (08:40)
[2019-05-21] MEDS: PANTOPRAZOLE SODIUM 40 MG DR TABLET PO SCH (09:00)
[2019-05-21] MEDS: DOCUSATE SODIUM 100 MG CAPSULE PO SCH ×2 (09:00→20:52)
[2019-05-21] MEDS ORDERED: ENOXAPARIN SODIUM 100 MG/ML PF SYRINGE SQ ONE (10:00)
[2019-05-21] MEDS ORDERED: SODIUM CHLORIDE 0.45% 1,000 ML IV SCH (10:00)
[2019-05-21 11:16] LABS: ABG A-A DIFF O2 243.8 mmHg (10-20.0); ABG BASE EXCESS 0.8 mmol/L (-2.0-3.0); ABG CARBOXYHEMOGLOBIN 0.2 % (0.0-1.5); ABG HCO3 25.2 mmol/L (22.0-26.0); ABG METHEMOGLOBIN 0.3 % (0.0-1.5); ABG OXYGEN CONTENT 15.8 mL/dL (15.0-23.0); ABG OXYGEN SATURATION 94.5 % (95.0-98.0); ABG PCO2 39 mmHg (35-45); ABG PH 7.431 (7.35-7.450); ABG TOTAL HEMOGLOBIN 11.9 G/dL (12.0-18.0); SITE, BLOOD GAS RT RADIAL; SOURCE, BLOOD GAS ARTERIAL; TEMPERATURE, FAHRENHEIT, BG 97.6 FAHREN (96.0-98.6)
[2019-05-21 11:17] LABS: O2 DEVICE,BLOOD GAS VENTILATOR (ROOM AIR); PEEP,BG 8 cm H2O; VT, ABG 450 ml
[2019-05-21] MEDS ORDERED: MethylPREDNISolone SOD SUCC 40 MG/ML VIAL IVP SCH (12:00)
[2019-05-21] MEDS: CefTRIAXone 1 GM/DEXTROSE 50 ML IV SCH (16:55)
[2019-05-21] MEDS ORDERED: SODIUM CHLORIDE 0.9% 500 ML IV ONE (18:13)
[2019-05-21] MEDS: DIVALPROEX SODIUM 125 MG DR CAPSULE NG SCH (20:50)
[2019-05-21] MEDS: ATORVASTATIN CALCIUM 10 MG TABLET PO SCH (20:51)
[2019-05-21] MEDS: OLANZapine 10 MG TABLET NG SCH (20:51)
[2019-05-22] VITALS (7 sets, daily range): BP systolic 106–175; BP diastolic 70–99
[2019-05-22] MEDS: MethylPREDNISolone SOD SUCC 125 MG/2 ML VIAL IVP SCH ×4 (00:19→19:08)
[2019-05-22] MEDS: PROPOFOL 1000 MG/ISO-OSM 100 ML IV PRN ×4 (00:20→19:09)
[2019-05-22] MEDS: MetroNIDAZOLE 500 MG/NACL 100 ML IV SCH ×3 (00:21→17:22)
[2019-05-22] MEDS: ALBUTEROL SULFATE 2.5 MG/0.5 ML NEB SOLUTION NEB SCH ×6 (03:16→22:49)
[2019-05-22] MEDS: IPRATROPIUM BROMIDE 0.5 MG/2.5 ML NEB SOLUTION NEB SCH ×6 (03:16→22:49)
[2019-05-22] MEDS: ACETAMINOPHEN 325 MG TABLET PO PRN (05:03)
[2019-05-22 05:27] LABS: CALCIUM, TOTAL 8.7 mg/dL (8.8-10.5); CREATININE 1.38 mg/dL (0.60-1.30); MAGNESIUM 2.4 mg/dL (1.80-2.40); PHOSPHORUS 3.5 mg/dL (2.5-4.9); POTASSIUM 5.2 mmol/L (3.5-5.1)
[2019-05-22] MEDS: LEVOTHYROXINE SODIUM 100 MCG TABLET PO SCH (06:32)
[2019-05-22 08:18] LABS: HEMATOCRIT 32.3 % (36-46); HEMOGLOBIN 10.9 g/dL (12.0-16.0); MEAN CORPUSCULAR HEMOGLOBIN 31.5 pg (26.0-34.0); MEAN CORPUSCULAR HGB CONC 33.7 G/dL (31.0-37.0); MEAN CORPUSCULAR VOLUME 94 fL (80-100); PLATELET COUNT (AUTO) 296 K/uL (150-450); RED BLOOD CELL COUNT(AUTO) 3.45 MIL/uL (4.00-5.20); RED CELL DISTRIBUTION WIDTH 16.9 % (11.5-14.5)
[2019-05-22 08:28] LABS: ALBUMIN 3.1 g/dL (3.4-5.0); BILIRUBIN,TOTAL 0.3 mg/dL (0.1-1.0); TOTAL PROTEIN, SERUM 7.3 g/dL (6.4-8.2)
[2019-05-22 08:46] LABS: BAND NEUTROPHILS % (MANUAL) 2 % (0-5); LYMPHOCYTES % (MANUAL) 7 % (22-44); MONOCYTES % (MANUAL) 5 % (2-9); PLATELET MORPHOLOGY COMMENT GIANT PLTS PRESENT; SEGMENTED NEUTROPHILS % 86 % (40-70)
[2019-05-22] MEDS: CHOLECALCIFEROL (VIT D3) 1,000 UNITS TABLET PO SCH (09:00)
[2019-05-22] MEDS: HEPARIN SODIUM,PORCINE 5,000 UNITS/ML VIAL SQ SCH ×2 (09:00→21:07)
[2019-05-22] MEDS: DOCUSATE SODIUM 100 MG CAPSULE PO SCH ×2 (09:00→21:06)
[2019-05-22] MEDS: PANTOPRAZOLE SODIUM 40 MG DR TABLET PO SCH (09:00)
[2019-05-22] MEDS: ASPIRIN 81 MG CHEWABLE TABLET PO SCH (09:00)
[2019-05-22] MEDS: AmLODIPine BESYLATE 10 MG TABLET PO SCH (09:00)
[2019-05-22] MEDS: FLUoxetine HCL 20 MG/5 ML SOLUTION ORAL.SYG NG SCH (09:00)
[2019-05-22 15:32] LABS: ABG A-A DIFF O2 171.1 mmHg (10-20.0); ABG BASE EXCESS 6.9 mmol/L (-2.0-3.0); ABG CARBOXYHEMOGLOBIN 0.1 % (0.0-1.5); ABG METHEMOGLOBIN 0.3 % (0.0-1.5); ABG OXYGEN CONTENT 15.3 mL/dL (15.0-23.0); ABG OXYGEN SATURATION 93.4 % (95.0-98.0); ABG PCO2 43 mmHg (35-45); ABG TOTAL HEMOGLOBIN 11.7 G/dL (12.0-18.0); O2 DEVICE,BLOOD GAS VENTILATOR (ROOM AIR); PEEP,BG 5 cm H2O; PO2, ARTERIAL BG 64.8 mmHg (75.0-83.0); SITE, BLOOD GAS RT RADIAL; SOURCE, BLOOD GAS ARTERIAL; TEMPERATURE, FAHRENHEIT, BG 98.6 FAHREN (96.0-98.6); VT, ABG 450 ml
[2019-05-22] MEDS: CefTRIAXone 1 GM/DEXTROSE 50 ML IV SCH (17:30)
[2019-05-22] MEDS ORDERED: 0.9% SODIUM CHLORIDE 15 ML NEB SOLUTION NEB ONE (20:05)
[2019-05-22] MEDS: DIVALPROEX SODIUM 125 MG DR CAPSULE NG SCH (21:06)
[2019-05-22] MEDS: ATORVASTATIN CALCIUM 10 MG TABLET PO SCH (21:07)
[2019-05-22] MEDS: OLANZapine 10 MG TABLET NG SCH (21:07)
[2019-05-23] VITALS: BP 156/96
[2019-05-23] MEDS: MetroNIDAZOLE 500 MG/NACL 100 ML IV SCH ×3 (00:28→16:59)
[2019-05-23] MEDS: MethylPREDNISolone SOD SUCC 125 MG/2 ML VIAL IVP SCH ×4 (00:29→18:17)
[2019-05-23] MEDS: PROPOFOL 1000 MG/ISO-OSM 100 ML IV PRN ×5 (00:47→21:55)
[2019-05-23] MEDS: IPRATROPIUM BROMIDE 0.5 MG/2.5 ML NEB SOLUTION NEB SCH ×6 (03:50→22:31)
[2019-05-23] MEDS: ALBUTEROL SULFATE 2.5 MG/0.5 ML NEB SOLUTION NEB SCH ×6 (03:51→22:31)
[2019-05-23 04:00] VITALS: BP 175/104
[2019-05-23] MEDS: ACETAMINOPHEN 325 MG TABLET PO PRN (04:39)
[2019-05-23 05:44] LABS: CALCIUM, TOTAL 8.4 mg/dL (8.8-10.5); CREATININE 1.25 mg/dL (0.60-1.30); MAGNESIUM 2.3 mg/dL (1.80-2.40); POTASSIUM 4.3 mmol/L (3.5-5.1)
[2019-05-23] MEDS: LEVOTHYROXINE SODIUM 100 MCG TABLET PO SCH (06:00)
[2019-05-23 08:00] VITALS: BP 156/98
[2019-05-23] MEDS: AmLODIPine BESYLATE 10 MG TABLET PO SCH (09:13)
[2019-05-23] MEDS: CHOLECALCIFEROL (VIT D3) 1,000 UNITS TABLET PO SCH (09:13)
[2019-05-23] MEDS: FLUoxetine HCL 20 MG/5 ML SOLUTION ORAL.SYG NG SCH (09:13)
[2019-05-23] MEDS: HEPARIN SODIUM,PORCINE 5,000 UNITS/ML VIAL SQ SCH ×2 (09:13→21:47)
[2019-05-23] MEDS: ASPIRIN 81 MG CHEWABLE TABLET PO SCH (09:13)
[2019-05-23] MEDS: PANTOPRAZOLE SODIUM 40 MG DR TABLET PO SCH (09:13)
[2019-05-23] MEDS: DOCUSATE SODIUM 100 MG CAPSULE PO SCH ×2 (09:15→21:46)
[2019-05-23] MEDS: CARVEDILOL 3.125 MG TABLET PO SCH ×2 (09:48→21:53)
[2019-05-23 12:00] VITALS: BP 85/53
[2019-05-23 16:00] VITALS: BP 160/97
[2019-05-23] MEDS: CefTRIAXone 1 GM/DEXTROSE 50 ML IV SCH (16:26)
[2019-05-23 20:00] VITALS: BP 165/101
[2019-05-23] MEDS: ATORVASTATIN CALCIUM 10 MG TABLET PO SCH (21:46)
[2019-05-23] MEDS: DIVALPROEX SODIUM 125 MG DR CAPSULE NG SCH (21:46)
[2019-05-23] MEDS: OLANZapine 10 MG TABLET NG SCH (21:46)
[2019-05-24] VITALS: BP 158/95
[2019-05-24] MEDS: MethylPREDNISolone SOD SUCC 125 MG/2 ML VIAL IVP SCH ×4 (02:57→18:27)
[2019-05-24] MEDS: MetroNIDAZOLE 500 MG/NACL 100 ML IV SCH ×2 (02:57→08:15)
[2019-05-24] MEDS: ALBUTEROL SULFATE 2.5 MG/0.5 ML NEB SOLUTION NEB SCH ×6 (03:01→23:08)
[2019-05-24] MEDS: IPRATROPIUM BROMIDE 0.5 MG/2.5 ML NEB SOLUTION NEB SCH ×6 (03:01→23:07)
[2019-05-24] MEDS ORDERED: SODIUM CHLORIDE 0.9% 500 ML IV ONE (03:06)
[2019-05-24 04:00] VITALS: BP 129/83
[2019-05-24] MEDS: PROPOFOL 1000 MG/ISO-OSM 100 ML IV PRN ×5 (04:07→22:07)
[2019-05-24 05:57] LABS: CALCIUM, TOTAL 8.5 mg/dL (8.8-10.5); CREATININE 1.12 mg/dL (0.60-1.30); MAGNESIUM 2.3 mg/dL (1.80-2.40); PHOSPHORUS 3.1 mg/dL (2.5-4.9); POTASSIUM 4.4 mmol/L (3.5-5.1)
[2019-05-24] MEDS: LEVOTHYROXINE SODIUM 100 MCG TABLET PO SCH (07:33)
[2019-05-24] MEDS ORDERED: SODIUM CHLORIDE 0.9% 250 ML IV ONE ×2 (07:48→23:33)
[2019-05-24 08:00] VITALS: BP 144/95
[2019-05-24] MEDS: PANTOPRAZOLE SODIUM 40 MG DR TABLET PO SCH (08:15)
[2019-05-24] MEDS: CHOLECALCIFEROL (VIT D3) 1,000 UNITS TABLET PO SCH (08:15)
[2019-05-24] MEDS: AmLODIPine BESYLATE 10 MG TABLET PO SCH (08:16)
[2019-05-24] MEDS: CARVEDILOL 3.125 MG TABLET PO SCH ×2 (08:16→20:49)
[2019-05-24] MEDS: DOCUSATE SODIUM 100 MG CAPSULE PO SCH ×2 (08:16→20:49)
[2019-05-24] MEDS: HEPARIN SODIUM,PORCINE 5,000 UNITS/ML VIAL SQ SCH ×2 (08:16→20:48)
[2019-05-24] MEDS: FLUoxetine HCL 20 MG/5 ML SOLUTION ORAL.SYG NG SCH (08:16)
[2019-05-24] MEDS: ASPIRIN 81 MG CHEWABLE TABLET PO SCH (08:17)
[2019-05-24 12:00] VITALS: BP 107/68
[2019-05-24 14:31] LABS: ABG A-A DIFF O2 245.8 mmHg (10-20.0); ABG BASE EXCESS 4.3 mmol/L (-2.0-3.0); ABG CARBOXYHEMOGLOBIN 0.1 % (0.0-1.5); ABG HCO3 27.8 mmol/L (22.0-26.0); ABG METHEMOGLOBIN 0.3 % (0.0-1.5); ABG OXYGEN CONTENT 15.5 mL/dL (15.0-23.0); ABG OXYGEN SATURATION 92.8 % (95.0-98.0); ABG OXYHEMOGLOBIN 92.4 % (94.0-100.0); ABG PCO2 42 mmHg (35-45); ABG PH 7.443 (7.35-7.450); ABG TOTAL HEMOGLOBIN 11.9 G/dL (12.0-18.0); PO2, ARTERIAL BG 63.2 mmHg (75.0-83.0); SOURCE, BLOOD GAS ARTERIAL; TEMPERATURE, FAHRENHEIT, BG 98.3 FAHREN (96.0-98.6)
[2019-05-24 14:33] LABS: O2 DEVICE,BLOOD GAS VENTILATOR (ROOM AIR); PEEP,BG 5 cm H2O; SITE, BLOOD GAS RT RADIAL; VT, ABG 450 ml
[2019-05-24 16:00] VITALS: BP 153/96
[2019-05-24] MEDS ORDERED: DEXTROSE 50%-WATER 25 GM/50 ML SYRINGE IVP PRN (18:00)
[2019-05-24 20:00] VITALS: BP 151/90
[2019-05-24] MEDS: OLANZapine 10 MG TABLET NG SCH (20:47)
[2019-05-24] MEDS: DIVALPROEX SODIUM 125 MG DR CAPSULE NG SCH (20:47)
[2019-05-24] MEDS: ATORVASTATIN CALCIUM 10 MG TABLET PO SCH (20:48)
[2019-05-24] MEDS: INSULIN LISPRO 100 UNITS/ML SQ PRN (23:47)
[2019-05-25] VITALS (13 sets, daily range): BP systolic 104–154; BP diastolic 66–100
[2019-05-25] MEDS: MethylPREDNISolone SOD SUCC 125 MG/2 ML VIAL IVP SCH ×5 (00:02→23:50)
[2019-05-25] MEDS: PROPOFOL 1000 MG/ISO-OSM 100 ML IV PRN ×4 (02:49→22:05)
[2019-05-25 03:24] LABS: GLUCOSE,POINT OF CARE 221 MG/DL (70-110)
[2019-05-25] MEDS: ACETAMINOPHEN 325 MG TABLET PO PRN ×2 (03:46→16:02)
[2019-05-25] MEDS: IPRATROPIUM BROMIDE 0.5 MG/2.5 ML NEB SOLUTION NEB SCH ×6 (04:04→23:00)
[2019-05-25] MEDS: ALBUTEROL SULFATE 2.5 MG/0.5 ML NEB SOLUTION NEB SCH ×6 (04:04→23:00)
[2019-05-25] MEDS: LEVOTHYROXINE SODIUM 100 MCG TABLET PO SCH (06:29)
[2019-05-25] MEDS: INSULIN LISPRO 100 UNITS/ML SQ PRN ×3 (06:36→23:51)
[2019-05-25 07:13] LABS: GLUCOSE,POINT OF CARE 216 MG/DL (70-110)
[2019-05-25] MEDS: HEPARIN SODIUM,PORCINE 5,000 UNITS/ML VIAL SQ SCH ×2 (07:59→21:01)
[2019-05-25] MEDS: FLUoxetine HCL 20 MG/5 ML SOLUTION ORAL.SYG NG SCH (08:00)
[2019-05-25] MEDS: CHOLECALCIFEROL (VIT D3) 1,000 UNITS TABLET PO SCH (08:00)
[2019-05-25] MEDS: PANTOPRAZOLE SODIUM 40 MG DR TABLET PO SCH (08:00)
[2019-05-25] MEDS: ASPIRIN 81 MG CHEWABLE TABLET PO SCH (08:01)
[2019-05-25] MEDS: DOCUSATE SODIUM 100 MG CAPSULE PO SCH ×2 (08:01→21:02)
[2019-05-25] MEDS: CARVEDILOL 3.125 MG TABLET PO SCH ×2 (08:01→21:02)
[2019-05-25] MEDS: AmLODIPine BESYLATE 10 MG TABLET PO SCH (08:01)
[2019-05-25 12:28] LABS: GLUCOSE,POINT OF CARE 231 MG/DL (70-110)
[2019-05-25 17:33] LABS: GLUCOSE,POINT OF CARE 248 MG/DL (70-110)
[2019-05-25] MEDS: DIVALPROEX SODIUM 125 MG DR CAPSULE NG SCH (21:02)
[2019-05-25] MEDS: ATORVASTATIN CALCIUM 10 MG TABLET PO SCH (21:02)
[2019-05-25] MEDS: OLANZapine 10 MG TABLET NG SCH (21:02)
[2019-05-25] MEDS ORDERED: SODIUM CHLORIDE 0.9% 250 ML IV ONE (22:03)
[2019-05-26] VITALS (13 sets, daily range): BP systolic 91–169; BP diastolic 51–90
[2019-05-26] MEDS: ALBUTEROL SULFATE 2.5 MG/0.5 ML NEB SOLUTION NEB SCH ×6 (03:23→22:58)
[2019-05-26] MEDS: IPRATROPIUM BROMIDE 0.5 MG/2.5 ML NEB SOLUTION NEB SCH ×6 (03:23→22:57)
[2019-05-26] MEDS: LEVOTHYROXINE SODIUM 100 MCG TABLET PO SCH (05:43)
[2019-05-26] MEDS: MethylPREDNISolone SOD SUCC 125 MG/2 ML VIAL IVP SCH ×3 (05:44→17:00)
[2019-05-26] MEDS: INSULIN LISPRO 100 UNITS/ML SQ PRN ×4 (05:46→23:46)
[2019-05-26 05:58] LABS: GLUCOSE,POINT OF CARE 249 MG/DL (70-110)
[2019-05-26 07:04] LABS: GLUCOSE,POINT OF CARE 273 MG/DL (70-110)
[2019-05-26] MEDS: FLUoxetine HCL 20 MG/5 ML SOLUTION ORAL.SYG NG SCH (07:27)
[2019-05-26] MEDS: HEPARIN SODIUM,PORCINE 5,000 UNITS/ML VIAL SQ SCH ×2 (07:27→21:19)
[2019-05-26] MEDS: CARVEDILOL 3.125 MG TABLET PO SCH ×2 (07:27→21:19)
[2019-05-26] MEDS: LACTULOSE 20 GM/30 ML SOLUTION UDCUP PO PRN ×2 (07:27→21:56)
[2019-05-26] MEDS: DOCUSATE SODIUM 100 MG CAPSULE PO SCH ×2 (07:28→21:19)
[2019-05-26] MEDS: CHOLECALCIFEROL (VIT D3) 1,000 UNITS TABLET PO SCH (07:28)
[2019-05-26] MEDS: AmLODIPine BESYLATE 10 MG TABLET PO SCH (07:28)
[2019-05-26] MEDS: ASPIRIN 81 MG CHEWABLE TABLET PO SCH (07:28)
[2019-05-26] MEDS: PANTOPRAZOLE SODIUM 40 MG DR TABLET PO SCH (07:28)
[2019-05-26] MEDS: PROPOFOL 1000 MG/ISO-OSM 100 ML IV PRN ×2 (07:42→17:02)
[2019-05-26 11:01] LABS: CALCIUM, TOTAL 8.2 mg/dL (8.8-10.5); CREATININE 1.41 mg/dL (0.60-1.30); POTASSIUM 4.2 mmol/L (3.5-5.1)
[2019-05-26 11:05] LABS: MAGNESIUM 2.3 mg/dL (1.80-2.40); PHOSPHORUS 3.4 mg/dL (2.5-4.9)
[2019-05-26 12:11] LABS: GLUCOSE,POINT OF CARE 246 MG/DL (70-110)
[2019-05-26 17:29] LABS: GLUCOSE,POINT OF CARE 256 MG/DL (70-110)
[2019-05-26] MEDS: ATORVASTATIN CALCIUM 10 MG TABLET PO SCH (21:19)
[2019-05-26] MEDS: OLANZapine 10 MG TABLET NG SCH (21:19)
[2019-05-26] MEDS: DIVALPROEX SODIUM 125 MG DR CAPSULE NG SCH (21:20)
[2019-05-26] MEDS: MethylPREDNISolone SOD SUCC 40 MG/ML VIAL IVP SCH (23:56)
[2019-05-27] VITALS (7 sets, daily range): BP systolic 114–158; BP diastolic 64–90
[2019-05-27] MEDS: PROPOFOL 1000 MG/ISO-OSM 100 ML IV PRN ×2 (01:48→11:32)
[2019-05-27] MEDS: ALBUTEROL SULFATE 2.5 MG/0.5 ML NEB SOLUTION NEB SCH ×6 (03:04→23:16)
[2019-05-27] MEDS: IPRATROPIUM BROMIDE 0.5 MG/2.5 ML NEB SOLUTION NEB SCH ×6 (03:04→23:16)
[2019-05-27] MEDS: LEVOTHYROXINE SODIUM 100 MCG TABLET PO SCH (05:49)
[2019-05-27] MEDS: INSULIN LISPRO 100 UNITS/ML SQ PRN ×4 (05:52→23:33)
[2019-05-27] MEDS: MethylPREDNISolone SOD SUCC 40 MG/ML VIAL IVP SCH ×4 (05:59→23:32)
[2019-05-27 06:03] LABS: GLUCOSE,POINT OF CARE 220 MG/DL (70-110)
[2019-05-27 06:03] LABS: GLUCOSE,POINT OF CARE 273 MG/DL (70-110)
[2019-05-27 07:38] LABS: CALCIUM, TOTAL 8.1 mg/dL (8.8-10.5); CREATININE 1.43 mg/dL (0.60-1.30); POTASSIUM 4.2 mmol/L (3.5-5.1)
[2019-05-27] MEDS: FLUoxetine HCL 20 MG/5 ML SOLUTION ORAL.SYG NG SCH (08:55)
[2019-05-27] MEDS: DOCUSATE SODIUM 100 MG CAPSULE PO SCH ×2 (08:56→20:48)
[2019-05-27] MEDS: CARVEDILOL 3.125 MG TABLET PO SCH ×2 (08:56→20:48)
[2019-05-27] MEDS: AmLODIPine BESYLATE 10 MG TABLET PO SCH (08:56)
[2019-05-27] MEDS: ASPIRIN 81 MG CHEWABLE TABLET PO SCH (08:56)
[2019-05-27] MEDS: PANTOPRAZOLE SODIUM 40 MG DR TABLET PO SCH (08:57)
[2019-05-27] MEDS: CHOLECALCIFEROL (VIT D3) 1,000 UNITS TABLET PO SCH (08:57)
[2019-05-27] MEDS: HEPARIN SODIUM,PORCINE 5,000 UNITS/ML VIAL SQ SCH ×2 (08:57→20:48)
[2019-05-27 09:59] LABS: EOSINOPHILS % (AUTO) 0 % (1.0-6.0); HEMATOCRIT 35.1 % (36-46); HEMOGLOBIN 11.7 g/dL (12.0-16.0); LYMPHOCYTES # (AUTO) 0.7 K/uL (1.0-4.8); LYMPHOCYTES % (AUTO) 4.7 % (22.0-44.0); MEAN CORPUSCULAR HEMOGLOBIN 30.9 pg (26.0-34.0); MEAN CORPUSCULAR HGB CONC 33.3 G/dL (31.0-37.0); MEAN CORPUSCULAR VOLUME 93 fL (80-100); MONOCYTES # (AUTO) 0.8 K/uL (0.1-1.0); MONOCYTES % (AUTO) 5.6 % (2.0-9.0); PLATELET COUNT (AUTO) 158 K/uL (150-450); RED BLOOD CELL COUNT(AUTO) 3.78 MIL/uL (4.00-5.20)
[2019-05-27 10:07] LABS: NEUTROPHILS % (AUTO) 89.7 % (40.0-70.0)
[2019-05-27 12:42] LABS: GLUCOSE,POINT OF CARE 245 MG/DL (70-110)
[2019-05-27] MEDS: ATORVASTATIN CALCIUM 10 MG TABLET PO SCH (20:48)
[2019-05-27] MEDS: OLANZapine 10 MG TABLET NG SCH (20:48)
[2019-05-27] MEDS: DIVALPROEX SODIUM 125 MG DR CAPSULE NG SCH (20:49)
[2019-05-28] VITALS (7 sets, daily range): BP systolic 101–159; BP diastolic 59–87
[2019-05-28] MEDS: ALBUTEROL SULFATE 2.5 MG/0.5 ML NEB SOLUTION NEB SCH ×6 (02:43→22:48)
[2019-05-28] MEDS: IPRATROPIUM BROMIDE 0.5 MG/2.5 ML NEB SOLUTION NEB SCH ×6 (02:43→22:48)
[2019-05-28] MEDS: MethylPREDNISolone SOD SUCC 40 MG/ML VIAL IVP SCH ×4 (05:31→23:07)
[2019-05-28] MEDS: INSULIN LISPRO 100 UNITS/ML SQ PRN ×4 (05:32→23:08)
[2019-05-28] MEDS: LEVOTHYROXINE SODIUM 100 MCG TABLET PO SCH (05:33)
[2019-05-28 06:30] LABS: GLUCOSE,POINT OF CARE 230 MG/DL (70-110)
[2019-05-28 06:30] LABS: GLUCOSE,POINT OF CARE 257 MG/DL (70-110)
[2019-05-28 07:42] LABS: CALCIUM, TOTAL 7.9 mg/dL (8.8-10.5); CREATININE 1.28 mg/dL (0.60-1.30); MAGNESIUM 2.3 mg/dL (1.80-2.40); PHOSPHORUS 3.5 mg/dL (2.5-4.9); POTASSIUM 5.1 mmol/L (3.5-5.1)
[2019-05-28 08:24] LABS: GLUCOSE,POINT OF CARE 245 MG/DL (70-110)
[2019-05-28] MEDS: HEPARIN SODIUM,PORCINE 5,000 UNITS/ML VIAL SQ SCH ×2 (08:39→20:29)
[2019-05-28] MEDS: PROPOFOL 1000 MG/ISO-OSM 100 ML IV PRN ×2 (08:39→18:57)
[2019-05-28] MEDS: CARVEDILOL 3.125 MG TABLET PO SCH ×3 (08:40→20:28)
[2019-05-28] MEDS: DOCUSATE SODIUM 100 MG CAPSULE PO SCH ×2 (08:40→20:27)
[2019-05-28] MEDS: AmLODIPine BESYLATE 10 MG TABLET PO SCH ×2 (08:40→09:00)
[2019-05-28] MEDS: FLUoxetine HCL 20 MG/5 ML SOLUTION ORAL.SYG NG SCH (08:40)
[2019-05-28] MEDS: PANTOPRAZOLE SODIUM 40 MG DR TABLET PO SCH (08:40)
[2019-05-28] MEDS: CHOLECALCIFEROL (VIT D3) 1,000 UNITS TABLET PO SCH (08:40)
[2019-05-28] MEDS: ASPIRIN 81 MG CHEWABLE TABLET PO SCH (08:40)
[2019-05-28 14:43] LABS: GLUCOSE,POINT OF CARE 223 MG/DL (70-110)
[2019-05-28] MEDS: ACETAMINOPHEN 325 MG TABLET PO PRN ×2 (16:35→20:29)
[2019-05-28 18:10] LABS: GLUCOSE,POINT OF CARE 200 MG/DL (70-110)
[2019-05-28] MEDS: OLANZapine 10 MG TABLET NG SCH (20:27)
[2019-05-28] MEDS: ATORVASTATIN CALCIUM 10 MG TABLET PO SCH (20:27)
[2019-05-28] MEDS: DIVALPROEX SODIUM 125 MG DR CAPSULE NG SCH (20:27)
[2019-05-29] VITALS (8 sets, daily range): BP systolic 90–141; BP diastolic 52–87
[2019-05-29] MEDS: IPRATROPIUM BROMIDE 0.5 MG/2.5 ML NEB SOLUTION NEB SCH ×2 (02:58→07:24)
[2019-05-29] MEDS: ALBUTEROL SULFATE 2.5 MG/0.5 ML NEB SOLUTION NEB SCH ×2 (02:59→07:24)
[2019-05-29 05:18] LABS: GLUCOSE,POINT OF CARE 223 MG/DL (70-110)
[2019-05-29 05:18] LABS: GLUCOSE,POINT OF CARE 231 MG/DL (70-110)
[2019-05-29] MEDS: LEVOTHYROXINE SODIUM 100 MCG TABLET PO SCH (05:39)
[2019-05-29] MEDS: MethylPREDNISolone SOD SUCC 40 MG/ML VIAL IVP SCH (05:39)
[2019-05-29] MEDS: INSULIN LISPRO 100 UNITS/ML SQ PRN (05:39)
[2019-05-29] MEDS: PROPOFOL 1000 MG/ISO-OSM 100 ML IV PRN (06:38)
[2019-05-29] MEDS: HEPARIN SODIUM,PORCINE 5,000 UNITS/ML VIAL SQ SCH (07:40)
[2019-05-29] MEDS: FLUoxetine HCL 20 MG/5 ML SOLUTION ORAL.SYG NG SCH (07:40)
[2019-05-29] MEDS: PANTOPRAZOLE SODIUM 40 MG DR TABLET PO SCH (07:40)
[2019-05-29] MEDS: CHOLECALCIFEROL (VIT D3) 1,000 UNITS TABLET PO SCH (07:40)
[2019-05-29] MEDS: ASPIRIN 81 MG CHEWABLE TABLET PO SCH (07:41)
[2019-05-29] MEDS: AmLODIPine BESYLATE 10 MG TABLET PO SCH (07:41)
[2019-05-29] MEDS: DOCUSATE SODIUM 100 MG CAPSULE PO SCH (07:42)
[2019-05-29] MEDS: CARVEDILOL 3.125 MG TABLET PO SCH (07:42)
[2019-05-29] MEDS ORDERED: MORPHINE SULFATE 100 MG/NS/PF 100 ML IV PRN ×2 (08:40→08:45)
[2019-05-29] MEDS ORDERED: ONDANSETRON HCL 4 MG/2 ML VIAL IVP PRN (08:45)
[2019-05-29] MEDS ORDERED: DiphenhydrAMINE HCL 50 MG/ML VIAL IVP PRN (08:45)
== END 2019-05-29 17:05 | disposition expired | DRG 207 ==
LOC: EMS 10:09 → 5S 21:44 → ICU 21:45 → 6N 05-29 11:15
PROVIDERS: ADMIT Hospitalist; ATTEND Hospitalist
PROC: 5A1955Z Respiratory Ventilation, Greater than 96 Consecutive Hours (ICD-10-PCS; principal; 2019-05-12)
PROC: 0BH17EZ Insertion of Endotracheal Airway into Trachea, Via Natural or Artificial Opening (ICD-10-PCS; 2019-05-12)
PROC: 5A09357 Assistance with Respiratory Ventilation, Less than 24 Consecutive Hours, Continuous Positive Airway Pressure (ICD-10-PCS; 2019-05-12)
DX: J96.01 Acute respiratory failure with hypoxia (principal); N17.0 Acute kidney failure with tubular necrosis; J69.0 Pneumonitis due to inhalation of food and vomit; E87.2 Acidosis; J44.0 Chronic obstructive pulmonary disease with (acute) lower respiratory infection; J44.1 Chronic obstructive pulmonary disease with (acute) exacerbation; E87.0 Hyperosmolality and hypernatremia; F03.91 Unspecified dementia, unspecified severity, with behavioral disturbance; I13.0 Hypertensive heart and chronic kidney disease with heart failure and stage 1 through stage 4 chronic kidney disease, or unspecified chronic kidney disease; J90 Pleural effusion, not elsewhere classified; J96.02 Acute respiratory failure with hypercapnia; E78.5 Hyperlipidemia, unspecified; E87.6 Hypokalemia; N18.9 Chronic kidney disease, unspecified; D64.9 Anemia, unspecified; E11.22 Type 2 diabetes mellitus with diabetic chronic kidney disease; E89.0 Postprocedural hypothyroidism; F25.9 Schizoaffective disorder, unspecified; I50.9 Heart failure, unspecified; I25.10 Atherosclerotic heart disease of native coronary artery without angina pectoris; K80.20 Calculus of gallbladder without cholecystitis without obstruction; N20.0 Calculus of kidney; Z79.82 Long term (current) use of aspirin; Z79.899 Other long term (current) drug therapy
CPT/HCPCS: 36600; 51702; 70450; 71250; 76770; 82570; 82805; 83735; 84100; 84132; 84300; 84443; 84540; 85007; 87070; 87081; 87205; 93005; 93306; 94002; 94003; 94640; 94660; 99291; G0378; G0480; J0330; J0696; J1200; J1630; J1644; J1940; J2060; J2270; J2405; J2543; J2704; J2920; J2930; J3480; J3490; J7040; J7050